=== PATIENT | female | born 1950 | race Caucasian/White ===

== ENCOUNTER 2018-06-30 06:00 | Inpatient (IN) | payer OTHER ==
[2018-06-23 12:06] LABS: Absolute Lymphocytes (CBC) 1.9 K/uL (0.7-4.9); Absolute Monocytes 0.5 K/uL (0.1-1.3); Absolute Neutrophil 3.8 K/uL (1.8-8.0); Basophils % 0.5 % (0-1.3); Eosinophils % 2.8 % (0-4.4); Hematocrit 44.7 % (36.0-45.0); Lymphocytes % 30.1 % (15.3-44.8); MPV 9.2 fL (7.6-11.3); Monocytes % 7.4 % (3.3-12.3); RBC Red Blood Cell Count 5.22 M/uL (3.86-4.86)
[2018-06-23 12:15] LABS: Protime INR 1.01
[2018-06-23 12:21] LABS: Potassium 4.6 mmol/L (3.5-5.1)
[2018-06-23 12:28] LABS: Albumin 4.3 g/dL (3.4-5.0); Bilirubin Direct 0.1 mg/dL (0-0.2); Bilirubin Total 0.4 mg/dL (0.2-1.0)
--- NOTE | 2018-06-23 13:25 | EKG ---
Test Date: 2018-06-23 Test Time: 11:31:52 Lens Engraver: JODEE MEASUREMENT RESULTS: Intervals: Rate: 62 AK: 144 QRSD: 82 QT: 398 QTc: 403 [place]: P: 13 AK: 144 QRS: 2 T: 33 INTERPRETIVE STATEMENTS: Normal sinus rhythm Normal ECG Compared to ECG 06/28/2016 11:06:36 No significant changes Electronically Signed On 06-23-18 13:24:03 TECHNICAL WRITING LEAD/MGR by Justin Tran
[~2018-06-30 06:00] MED LIST: CLINDAMYCIN INJ 600 MG in NA CHLORIDE 0.9% 50 ML IV ONE
--- OUTSIDE RECORDS SUMMARY | 2018-06-30 06:03 | XMS REPORT ---
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 Active shoulder Medications Medication Code Code Instructions Start End Status Dosage System Date Date Prevacid [facility] 74255519529 15 MG Orally Jan 19, Active 1 capsule Once a day 2017 Zoloft [facility] 59020413022 100 mg Oral Jan 19, Active 2 tab 2018 Imitrex [facility] 54061771059 100 MG Orally Active 1 tablet as Twice a day needed Clonazepam [facility] 72865842747 0.25 MG Orally Active 1 tablet on Once a day the tongue and allow to dissolve before bedtime Lyrica [facility] 71065584504 25 MG Orally Jan 19, Active 2 capsules Twice a day 2017 Meloxicam [facility] 84966287437 15 MG Orally Jan 19, Active 1 tablet Once a day 2018 Ambien [facility] 13707502999 10 MG Orally Jan 19, Active 1 tablet at Once a day 2018 bedtime as needed Pravastatin [facility] 17948456219 40 MG Orally Active 1 tablet Sodium Once a day clindamycin [facility] 0 Jan 19, Active not defined 2018 Oxycodone-Acetam [facility] 99896879731 7.5-325 MG Oral Active (Schedule inophen II Drug) TK 1 T PO TID Pantoprazole [facility] 67197894754 40 MG Orally Jan 19, Active 1 tablet Sodium Once a day 2018 Results No Known Results Summary Purpose [employer] Submission
--- OUTSIDE RECORDS SUMMARY | 2018-06-30 06:03 | XMS REPORT | Clinical Summary ---
:1950 Author Organization [facility] Address [address] [place] [address] Care Team Providers Name Role Phone Kathi Schultz MD Primary Care Provider Allergies Active Allergy Reactions Severity Noted Date Comments Bee Pollen Hives, Itching 10/26/2015 Venlafaxine Hives 10/26/2015 Penicillins Hives 10/26/2015 Sulfa (Sulfonamide Antibiotics) Hives 10/26/2015 Medications Medication Sig Dispensed Refills Start Date End Date Status pregabalin (LYRICA) Take 150 mg 0 Active 150 MG capsule by mouth 2 (two) times a day. meloxicam (MOBIC) 15 Take 15 mg by 0 Active MG tablet mouth daily. lansoprazole Take 30 mg by 0 Active (PREVACID) 30 MG mouth daily. capsule Takes in evening SUMAtriptan (IMITREX) Take 100 mg 0 Active 50 MG tablet by mouth once as needed for migraine. May repeat in 2 hours if unresolved. Do not exceed 200 mg in 24 hours. fluticasone (FLONASE) 2 sprays into 0 Active 50 mcg/actuation each nostril nasal spray daily. cetirizine (ZyrTEC) Take 10 mg by 0 Active 10 MG tablet mouth daily. diphenhydrAMINE Take 12.5 mg 0 Active (BENADRYL) 25 mg by mouth as capsule needed for itching. triamcinolone Apply 2 16.5 g 6 09/01/2016 Active (NASACORT AQ) 55 mcg sprays in nasal each nostril inhalerIndications: once a day Chronic rhinitis tiZANidine (ZANAFLEX) Take 4 mg by 0 Active 4 MG tablet mouth every 8 (eight) hours as needed for muscle spasms. pantoprazole TAKE ONE 90 tablet 1 11/16/2017 Active (PROTONIX) 40 MG EC TABLET BY tablet MOUTH DAILY oxyCODone-acetaminoph Take 1 tablet 0 Active en (PERCOCET) 7.5-325 by mouth 3 mg per tablet (three) times a day. cholecalciferol, Take 1 4 capsule 6 04/16/2018 Active vitamin D3, 50,000 capsule unit (50,000 Units capsuleIndications: total) by Vitamin D deficiency mouth once a week. pravastatin Take 1 tablet 30 tablet 5 04/21/2018 Active (PRAVACHOL) 40 MG (40 mg total) 9 tablet by mouth daily. sertraline (ZOLOFT) Take 2 60 tablet 5 05/05/2018 Active 100 MG tablet tablets (200 mg total) by mouth daily. zolpidem (AMBIEN) 10 Take 1 tablet 30 tablet 2 05/05/2018 Active mg tablet (10 mg total) 9 by mouth nightly as needed for sleep for up to 90 days. dextromethorphan-guai Take 1 tablet 0 Discontinued fenesin (MUCINEX DM by mouth as 8 REGULAR) 30-600 mg needed. tablet extended release 12 hr zolpidem (AMBIEN) 10 Take 10 mg by 0 12/20/2015 Discontinued mg tablet mouth nightly 8 as needed. oxyCODone-acetaminoph TK 1 TABLET 0 11/09/2015 Discontinued en (PERCOCET) 10-325 BY MOUTH TID 8 mg per tablet TO QID sertraline (ZOLOFT) TAKE TWO 60 tablet 5 04/01/2017 Discontinued 100 MG tablet TABLETS BY 8 MOUTH DAILY cholecalciferol, TAKE ONE 8 capsule 1 04/30/2017 Discontinued vitamin D3, 50,000 CAPSULE BY 8 unit MOUTH TWICE capsuleIndications: PER WEEK Vitamin D deficiency pantoprazole TAKE ONE 90 tablet 1 04/30/2017 Discontinued (PROTONIX) 40 MG EC TABLET BY 8 tablet MOUTH DAILY sertraline (ZOLOFT) TAKE TWO 60 tablet 2 10/06/2017 Discontinued 100 MG tablet TABLETS BY 8 MOUTH DAILY clonAZEPAM (KlonoPIN) Take 1 tablet 20 tablet 0 10/06/2017 0.5 MG tablet by mouth 8 every 6-8 hrs as needed for anxiety. nitrofurantoin, Take 1 14 capsule 0 12/18/2017 macrocrystal-monohydr capsule (100 8 ate, (MACROBID) 100 mg total) by MG mouth 2 (two) capsuleIndications: times a day Dysuria for 7 days. sertraline (ZOLOFT) TAKE TWO 60 tablet 3 12/29/2017 Discontinued 100 MG tablet TABLETS BY 8 MOUTH DAILY tolterodine LA Take 1 30 capsule 11 01/20/2018 Discontinued (DETROL LA) 4 MG 24 capsule (4 mg 8 hr capsule total) by mouth daily. zolpidem (AMBIEN) 10 Take 1 tablet 30 tablet 2 01/21/2018 mg tablet (10 mg total) 8 by mouth nightly as needed for sleep for up to 30 days. clonAZEPAM (KlonoPIN) Take 1 tablet 30 tablet 0 04/16/2018 0.5 MG tablet by mouth 8 every 6-8 hrs as needed for anxiety. azithromycin Take 2 6 tablet 0 06/18/2018 (ZITHROMAX Z-ELIZA) 250 tablets the 9 MG tabletIndications: first day, Cough then 1 tablet daily for 4 days. 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 Encounters Date Type Specialty Care Team Description 06/18/2018 Office Visit Family Medicine Kathi Schultz Preoperative clearance (Primary Dx); MD Warren Primary osteoarthritis of right shoulder; Cough 06/03/2018 Telephone Family Medicine Kathi Schultz MD 05/21/2018 Telephone Internal Medicine Kathi Schultz MD 05/04/2018 Telephone Family Medicine Kathi Schultz MD 05/04/2018 Refill Family Medicine Kathi Schultz MD 04/21/2018 Telephone Family Medicine Kathi Schultz MD 04/16/2018 Telephone Internal Medicine Kathi Schultz MD 04/15/2018 Refill Family Kathi Aceves Vitamin D deficiency MD Warren 04/12/2018 Lab Lab Kathi Schultz Pure hypercholesterolemia; MD Warren Urinary incontinence without sensory awareness; Osteopenia of lumbar spine; Vitamin D deficiency; Chronic cough; Acute chest wall pain; Recurrent major depressive disorder, in partial remission (HCC) 04/12/2018 Office Visit Family Medicine Kathi Schultz Annual visit for general adult medical examination with abnormal findings (Primary Dx); MD Warren Immunization due; Breast cancer screening; Colon cancer screening; Osteopenia of lumbar spine; Chronic cough; Pure hypercholesterolemia; Urinary incontinence without sensory awareness; Recurrent major depressive disorder, in partial remission (HCC); Primary osteoarthritis of right shoulder; Vitamin D deficiency; Acute chest wall pain 04/08/2018 Telephone Family Medicine Kathi Schultz MD 03/10/2018 Telephone Urology Marlene Moreland MD 03/08/2018 Telephone Urology Sarah Gamez MA 03/01/2018 Procedure visit Urology Marlene Moreland Urinary urgency MD Yun (Primary Dx) 02/26/2018 Telephone Urology Cele Miller LVN 01/21/2018 Telephone Neurosurgery Jyotsna Peguero MA 01/20/2018 Office Visit Urology Marlene Moreland Urinary frequency (Primary Dx); MD Yun Urge incontinence; Nocturia 12/29/2017 Refill Family Medicine Kathi Schultz MD 12/25/2017 Lab Lab Kathi Schultz Urinary tract infection MD Warren without hematuria, site unspecified 12/22/2017 Telephone Family Medicine Kathi Schultz Urinary tract infection MD Warren without hematuria, site unspecified (Primary Dx) 12/18/2017 Office Visit Family Kathi Aceves Dysuria (Primary Dx); MD Warren Nocturnal enuresis; Urge incontinence 12/18/2017 Nurse Triage Access Abby Kapadia RN 11/17/2017 Refill Cardiology Short, [facility] Refill 11/16/2017 Refill Family Medicine Kathi Schultz MD 10/06/2017 Telephone Family Medicine Kathi Schultz MD 10/05/2017 Refill Family Medicine Kathi Schultz MD 09/25/2017 Office Visit Family Medicine Kathi Schultz Posterior chest pain (Primary Dx); MD Warren Cough present for greater than 3 weeks after 06/29/2017 Immunizations Name Dates Previously Given Next Due FLUZONE HIGH-DOSE PF 04/12/2018, 09/25/2016 Pneumococcal Conjugate 13-Valent 09/25/2016 Pneumococcal Polysaccharide 04/12/2018 Family History Medical History Relation Name Comments No Known Problems Brother No Known Problems Father No Known Problems Maternal Grandfather No Known Problems Maternal Grandmother No Known Problems Mother Asthma Other Emphysema Other Other Other breathing problems No Known Problems Paternal Grandmother No Known Problems Sister Relation Name Status Comments Brother Father Maternal Grandfather Maternal Grandmother Mother Alive Other Paternal Grandmother Sister Social History Tobacco Use Types Packs/Day Years Used Date Never Smoker Smokeless Tobacco: Never Used Tobacco Cessation: Counseling Given: No Alcohol Use Drinks/Week oz/Week Comments No Sex Assigned at Date Recorded Not on file Job Start Date Occupation Industry Not on file Not on file Not on file Travel History Travel Start Travel End No recent travel history available. Last Filed Vital Signs Vital Sign Reading Time Taken Blood Pressure 118/75 06/18/2018 3:11 PM TRAUMA NURSE Pulse 73 06/18/2018 3:11 PM TRAUMA NURSE Temperature 37.2 C (99 F) 06/18/2018 3:11 PM TRAUMA NURSE Respiratory Rate - - Oxygen Saturation 97% 06/18/2018 3:11 PM TRAUMA NURSE Inhaled Oxygen Concentration - - Weight 65.8 kg (145 lb) 06/18/2018 3:11 PM TRAUMA NURSE Height 157.5 cm (5' 2") 06/18/2018 3:11 PM TRAUMA NURSE Body Mass Index 26.52 06/18/2018 3:11 PM TRAUMA NURSE Plan of Treatment Health Maintenance Due Date Last Done Comments BREAST CANCER SCREENING 10/21/1999 COLON CANCER SCREENING 10/21/1999 SHINGLES VACCINES (1 of 2) 10/21/1999 PNEUMOCOCCAL-13 Completed 09/25/2016 INFLUENZA VACCINE Completed 04/12/2018, 09/25/2016 PNEUMOCOCCAL POLYSACCHARIDE VACCINE AGE 65 Completed 04/12/2018 AND OVER Implants Implanted Type Area Support Specialist Device Shelf Model / Serial / Identifier Expiration Lot Date Shell Actblr Mul-Hl Sz Jj 54mm Continuum - [id number] Hip Joint Right [employer] 06/14/2025 [id number] / Implanted: Qty: 1 on 11/05/2015 Implants : Hip / [id number] Shell Actblr Mul-Hl Sz Jj 54mm Continuum - [id number] Hip Joint Right [employer] 06/14/2025 [id number] / Implanted: Qty: 1 on 11/05/2015 Implants : Hip / [id number] Putty Dbm Dbx 10cc - [id number] - [id number] Human Right MUSCULOSKELETAL 04/13/2017 [id number] / Implanted: Qty: 1 on 11/05/2015 Tissue : Hip TRANSPLANT [id number] / Implants [employer] Head Fml 05/28 Tprd Mtl 36x+8.5mm Articul/Yuri Ultamet - [id number] Orthopedic Right DEPUY ORTHO 08/07/2019 [id number] / Implanted: Qty: 1 on 11/05/2015 Trauma : Hip / Implants [id number] Cancellous Chips, 30cc Right 07/04/2018 / Implanted: Qty: 1 on 11/05/2015 : Hip [id number] / Neutral Liner Right 05/14/2020 / Implanted: Qty: 1 on 11/05/2015 : Hip / [id number] Bone Screw Right 08/12/2025 / Implanted: Qty: 1 on 11/05/2015 : Hip / [id number] Bone Screw Right 01/12/2025 / Implanted: Qty: 1 on 11/05/2015 : Hip / [id number] Procedures Procedure Name Priority Date/Time Associated Diagnosis Comments XR CHEST 2 VW Routine 06/18/2018 Preoperative clearance Results for 3:58 PM TRAUMA NURSE Primary osteoarthritis of this procedure right shoulder are in the Cough results section. XR RIBS 3 VW Routine 04/13/2018 Acute chest wall pain Results for BILATERAL 1:06 PM CDT this procedure are in the results section. XR CHEST 2 VW Routine 04/13/2018 Chronic cough Results for 1:06 PM CDT this procedure are in the results section. THYROID STIMULATING Routine 04/12/2018 Pure hypercholesterolemia Results for HORMONE 9:57 AM CDT Recurrent major depressive this procedure disorder, in partial are in the remission (HCC) results section. CBC WITH PLATELET Routine 04/12/2018 Chronic cough Results for AND DIFFERENTIAL 9:57 AM CDT Acute chest wall pain this procedure are in the results section. VITAMIN D 25 HYDROXY Routine 04/12/2018 Osteopenia of lumbar spine Results for LEVEL 9:57 AM CDT Vitamin D deficiency this procedure are in the results section. URINALYSIS, Routine 04/12/2018 Urinary incontinence Results for COMPLETE, WITH 9:57 AM CDT without sensory awareness this procedure REFLEX TO CULTURE are in the results section. COMPREHENSIVE Routine 04/12/2018 Pure hypercholesterolemia Results for METABOLIC PANEL 9:57 AM CDT this procedure are in the results section. LIPID PANEL Routine 04/12/2018 Pure hypercholesterolemia Results for 9:57 AM CDT this procedure are in the results section. URINE CULTURE Routine 04/12/2018 Results for 9:57 AM CDT this procedure are in the results section. OCCULT BLOOD, STOOL Routine 04/12/2018 Colon cancer screening Results for 9:36 AM CDT this procedure are in the results section. POC URINALYSIS Routine 03/01/2018 Urinary urgency Results for DIPSTICK 3:00 PM CDT this procedure are in the results section. VPS INTERMED Routine 03/01/2018 Urinary urgency (FR,EMG,PVES-PABD: 2:22 PM CDT PDET) CYSTOMETROGRAM Routine 03/01/2018 Urinary urgency COMPLEX (CMG-PVES) 2:22 PM CDT FL URETHROGRAM URO Routine 03/01/2018 Urinary urgency 2:21 PM CDT UROFLOWMETRY COMPLEX Routine 03/01/2018 Urinary urgency (F-P-F) 2:21 PM CDT VPS INTRA ABD Routine 03/01/2018 Urinary urgency COMPLEX (LPP) 2:21 PM CDT [id number] Routine 01/20/2018 Nocturia Results for 10:07 AM CDT Urge incontinence this procedure are in the results section. POC URINALYSIS Routine 01/20/2018 Nocturia Results for DIPSTICK 9:59 AM CDT Urge incontinence this procedure are in the results section. URINALYSIS, Routine 12/25/2017 Urinary tract infection Results for AUTOMATED WITH 12:34 PM CDT without hematuria, site this procedure MICROSCOPY unspecified are in the results section. URINE CULTURE Routine 12/25/2017 Urinary tract infection Results for 12:34 PM CDT without hematuria, site this procedure unspecified are in the results section. POC URINALYSIS Routine 12/18/2017 Dysuria Results for DIPSTICK 11:58 AM CDT this procedure are in the results section. URINALYSIS, Routine 12/18/2017 Dysuria Results for AUTOMATED WITH 11:57 AM CDT this procedure MICROSCOPY are in the results section. URINE CULTURE Routine 12/18/2017 Dysuria Results for 11:57 AM CDT this procedure are in the results section. XR CHEST 2 VW Routine 09/25/2017 Posterior chest pain Results for 10:51 AM CDT Cough present for greater this procedure than 3 weeks are in the results section. after 06/29/2017 Results XR Chest 2 Vw (06/18/2018 3:58 PM TRAUMA NURSE)Only the most recent of3 resultswithin the time period is included. Narrative Performed At EXAMINATION:XR CHEST 2 VW [facility] CLINICAL HISTORY:Z01.818 Encounter for other preprocedural examination, M19.011 Primary osteoarthritisright shoulder, coughpre-op clearance COMPARISON:04/13/2018 IMPRESSION: Lungs are clear without infiltrate, pleural effusion or pneumothorax. Cardiomediastinal silhouette is unremarkable. Osseous degenerative changes and mild osseous demineralization. Cranial extent of posterior spinal fusion partly visualized. Kyphoplasty changes lower thoracic/upper lumbar vertebra. [facility]-[id number] Procedure Note Hm Interface, Radiology Results Incoming - 06/18/2018 4:05 PM TRAUMA NURSE EXAMINATION: XR CHEST 2 VW CLINICAL HISTORY: Z01.818 Encounter for other preprocedural examination, M19.011 Primary osteoarthritis right shoulder, cough pre-op clearance COMPARISON: 04/13/2018 IMPRESSION: Lungs are clear without infiltrate, pleural effusion or pneumothorax. Cardiomediastinal silhouette is unremarkable. Osseous degenerative changes and mild osseous demineralization. Cranial extent of posterior spinal fusion partly visualized. Kyphoplasty changes lower thoracic /upper lumbar vertebra. [facility]-[id number] Performing Organization Address City/State/Zipcode Phone Number [facility] [address] [place] [address] XR Ribs 3 Vw Bilateral (04/13/2018 1:06 PM CDT) Narrative Performed At EXAMINATION:XR RIBS 3 VW BILATERAL [facility] CLINICAL HISTORY:R07.89 Other chest pain, R and L sided chest wall painR side due to leaning over bath tubawoke with L sided pain today (cause) COMPARISON:None. IMPRESSION: Nondisplaced right anterior sixth and eighth rib fracture suspected in the costochondral junction. Correlate for point tenderness. [id number] Procedure Note Hm Interface, Radiology Results Incoming - 04/13/2018 5:12 PM CDT EXAMINATION: XR RIBS 3 VW BILATERAL CLINICAL HISTORY: R07.89 Other chest pain, R and L sided chest wall pain R side due to leaning over bath tub awoke with L sided pain today ( cause) COMPARISON: None. IMPRESSION: Nondisplaced right anterior sixth and eighth rib fracture suspected in the costochondral junction. Correlate for point tenderness. [id number] Performing Organization Address City/[facility]/Zipcode Phone Number [facility] [address] [place] [address] URINALYSIS, COMPLETE, WITH REFLEX TO CULTURE (04/12/2018 9:57 AM CDT) Color, UA DARK YELLOW YELLOW [facility] [place] Appearance CLEAR CLEAR [facility] Specific gravity, urine 1.030 1.001 - 1.035 [facility] [place] pH, urine 7.5 5.0 - 8.0 [facility] Glucose, urine NEGATIVE NEGATIVE [facility] Bilirubin, UA NEGATIVE NEGATIVE [facility] Ketones, UA TRACE (A) NEGATIVE [facility] Occult blood, urine NEGATIVE NEGATIVE [facility] Protein, UA TRACE (A) NEGATIVE [facility] Nitrite, UA NEGATIVE NEGATIVE [facility] Leukocyte esterase, UA TRACE (A) NEGATIVE [facility] [place] WBC, UA NONE SEEN < OR=5 /HPF [facility] [place] RBC, UA 0-2 < OR=2 /HPF [facility] Squamous epithelial 0-5 < OR=5 /HPF [facility] cells, UA [facility] Bacteria, UA NONE SEEN NONE SEEN /HPF [facility] Hyaline casts, UA NONE SEEN NONE SEEN /LPF [facility] Reflex CULTURE INDICATED - [employer] RESULTS TO FOLLOW [facility] Specimen Blood Resulting Agency Comment Performing Organization Information: Site ID: [id number] Name: [facility] Address: [address] [place] [address] Director: Pina Peralta Performing Organization Address City/[facility]/Zipcode Phone Number [facility] [address] [address] Vitamin D 25 hydroxy level (04/12/2018 9:57 AM CDT) Vitamin D, 25-hydroxy 28 (L) 30 - 100 ng/mL [employer] [place] Comment: [facility] Vitamin D Status 25-OH Vitamin D: Deficiency:<20 ng/mL Insufficiency: 20 - 29 ng/mL Optimal: > or=30 ng/mL For 25-OH Vitamin D testing on patients on D2-supplementation and patients for whom quantitation of D2 and D3 fractions is required, the QuestAssureD(TM) 25-OH VIT D, (D2,D3), LC/MS/MS is recommended: order code 61168 (patients >2yrs). For more information on this test, go to: http://education.[employer]/faq/KTG282 (This link is being provided for informational/educational purposes only.) Specimen Blood Resulting Agency Comment Performing Organization Information: Site ID: [id number] Name: [facility] Address: [address] [place] [phone] Director: Pina Peralta Performing Organization Address City/State/Zipcode [place] [address] CBC with platelet and differential (04/12/2018 9:57 AM CDT) WBC 6.6 3.8 - 10.8 Thousand/uL [employer] [facility] [place] RBC 5.05 3.80 - 5.10 Million/uL [facility] HGB 14.3 11.7 - 15.5 g/dL [facility] HCT 43.8 35.0 - 45.0 % [employer] [facility] [place] MCV 86.7 80.0 - 100.0 fL [employer] [facility] MCH 28.3 27.0 - 33.0 pg [employer] [facility] MCHC 32.6 32.0 - 36.0 g/dL [employer] [facility] RDW 14.5 11.0 - 15.0 % [employer] [facility] Platelet count 232 140 - 400 Thousand/uL [employer] [facility] MPV 10.9 7.5 - 12.5 fL [employer] [facility] [place] Neutrophils, absolute 3,947 1,500 - 7,800 cells/uL [employer] [facility] Lymphocytes, absolute 1,980 850 - 3,900 cells/uL [employer] [facility] [place] Monocytes, absolute 475 200 - 950 cells/uL [facility] Eosinophils, absolute 139 15 - 500 cells/uL [facility] Basophils, absolute 59 0 - 200 cells/uL [facility] Neutrophils 59.8 % [facility] Lymphocytes 30.0 % [facility] Monocytes 7.2 % [facility] Eosinophils 2.1 % [facility] Basophils + RC 0.9 % [facility] Specimen Blood Resulting Agency Comment Performing Organization Information: Site ID: [id number] Name: [facility] Address: [address] [place] [phone] Director: Pina Peralta Performing Organization Address City/State/Zipcode Phone Number [facility] [address] [place] [address] Urine culture (04/12/2018 9:57 AM CDT)Only the most recent of3 resultswithin the time period is included. Urine culture SEE NOTE (A) [employer] [facility] [place] Comment: CULTURE, URINE, ROUTINE MICRO NUMBER:[id number] TEST STATUS: FINAL SPECIMEN SOURCE: URINE SPECIMEN QUALITY:ADEQUATE RESULT:10,000-50,000 CFU/mL of Escherichia coli E.coli INT SKINNY AMOX/CLAVULANATE S <=2 AMPICILLIN S 4 AMP/SULBACTAMS 4 CEFAZOLINNR<=4 2 CEFEPIME S <=1 CEFTRIAXONES <=1 CIPROFLOXACINR >=4 GENTAMICIN S <=1 IMIPENEM S <=0.25 LEVOFLOXACIN R >=8 NITROFURANTOIN S <=16 PIP/TAZOBACTAM S <=4 TOBRAMYCIN S <=1 TRIMETHOPRIM/SULFA R >=320 S=SusceptibleI=IntermediateR=Resistant*=Not Tested NR=Not ReportedNN=See Therapy Comments THERAPY COMMENTS Note 1: For infections other than uncomplicated UTI caused by E. coli, K. pneumoniae or P. mirabilis: Cefazolin is resistant if SKINNY > or=8 mcg/mL. (Distinguishing susceptible versus intermediate for isolates with SKINNY < or=4 mcg/mL requires additional testing.) Note 2: For uncomplicated UTI caused by E. coli, K. pneumoniae or P. mirabilis: Cefazolin is susceptible if SKINNY <32 mcg/mL and predicts susceptible to the oral agents cefaclor, cefdinir, cefpodoxime, cefprozil, cefuroxime, cephalexin and loracarbef. Resulting Agency Comment Performing Organization Information: Site ID: [id number] Name: [facility] Address: [address] [place] [phone] Director: Pina Peralta Performing Organization Address City/[facility] Phone Number [facility] [address] [place] [phone] Thyroid stimulating hormone (04/12/2018 9:57 AM CDT) TSH 0.83 0.40 - 4.50 mIU/L [facility] Specimen Blood Resulting Agency Comment Performing Organization Information: Site ID: [id number] Name: [facility] Address: [address] [place] [phone] Director: Pina Peralta Performing Organization Address [facility] Phone Number [facility] [address] [address] Lipid panel (04/12/2018 9:57 AM CDT) Cholesterol, total 301 (H) <200 mg/dL [facility] HDL cholesterol 46 (L) >50 mg/dL [facility] Triglycerides 372 (H) <150 mg/dL [facility] LDL cholesterol 192 (H) mg/dL (calc) [facility] calculated Comment: [facility] LDL-C levels > lw=169 mg/dL may indicate familial hypercholesterolemia (FH). Clinical assessment and measurement of blood lipid levels should be considered for all first degree relatives of patients with an FH diagnosis. For questions about testing for familial hypercholesterolemia, please call [employer] Client Services at [phone].INFO. Arline T, et al. J National Lipid Association Recommendations for Patient-Centered Management of Dyslipidemia: Part 1 Journal of Clinical Lipidology 2015;9(2), 129-169. Reference range: <100 Desirable range <100 mg/dL for primary prevention; <70 mg/dL for patients with CHD or diabetic patients with > or=2 CHD risk factors. LDL-C is now calculated using the Olegario calculation, which is a validated novel method providing better accuracy than the Friedewald equation in the estimation of LDL-C. Lonny HARRIS et al. CHASTITY. 2013;310(19): 8975-7552 (http://education.[employer]/faq/VOB176) Cholesterol/HDL ratio 6.5 (H) <5.0 (calc) [employer] [facility] [place] Non-HDL cholesterol 255 (H) <130 mg/dL [facility] [facility] [employer] Comment: (calc) [facility] Non-HDL level > by=057 is very high and may indicate genetic familial hypercholesterolemia (FH). Clinical assessment and measurement of blood lipid levels should be considered for all first-degree relatives of patients with an FH diagnosis. For patients with diabetes plus 1 major ASCVD risk factor, treating to a non-HDL-C goal of <100 mg/dL (LDL-C of <70 mg/dL) is considered a therapeutic option. Specimen Blood Resulting Agency Comment Performing Organization Information: Site ID: [id number] Name: [facility] Address: [address] [place] [phone] Director: Pina Peralta Performing Organization Address City/State/Zipcode Phone Number [facility] [employer] [address] [phone] Comprehensive metabolic panel (04/12/2018 9:57 AM CDT) Glucose 97 65 - 99 mg/dL [employer] Comment: [facility] Fasting reference interval BUN, whole blood 18 7 - 25 mg/dL [employer] [facility] Creatinine 0.97 0.50 - 0.99 [employer] Comment: mg/dL [facility] For patients >49 years of age, the reference limit for Creatinine is approximately 13% higher for people identified as -Beninese. EGFR Non-Afr. Beninese 60 > OR=60 [employer] mL/min/1.73m2 [place] EGFR 70 > OR=60 [facility] mL/min/1.73m2 [place] BUN/creatinine ratio NOT APPLICABLE 6 - 22 (calc) [employer] [facility] Sodium 141 135 - 146 mmol/L [employer] [facility] Potassium 4.8 3.5 - 5.3 mmol/L [employer] [facility] Chloride 102 98 - 110 mmol/L [employer] [facility] CO2 31 20 - 32 mmol/L [employer] [facility] Calcium 9.8 8.6 - 10.4 mg/dL [employer] [facility] Protein 7.2 6.1 - 8.1 g/dL [employer] [facility] Albumin, S 4.5 3.6 - 5.1 g/dL [employer] [facility] Globulin, total 2.7 1.9 - 3.7 g/dL [employer] (calc) [facility] Albumin/globulin ratio 1.7 1.0 - 2.5 (calc) [facility] Total bilirubin 0.4 0.2 - 1.2 mg/dL [facility] Alkaline phosphatase 90 33 - 130 U/L [employer] [facility] AST 13 10 - 35 U/L [facility] ALT 11 6 - 29 U/L [employer] [facility] Specimen Blood Resulting Agency Comment Performing Organization Information: Site ID: [facility] Name: [employer] [facility] Lab Address: [address] [place] [phone] Director: Pina Peralta Performing Organization Address City/[facility] Phone Number [facility] [employer] [address] [phone] Occult blood, stool (04/12/2018 9:36 AM CDT) Fecal globin result SEE NOTE [facility] Comment: FECAL GLOBIN BY IMMUNOCHEMISTRY MICRO NUMBER:[id number] TEST STATUS: FINAL SPECIMEN SOURCE: INSURE (TM) FOBT TEST CARD SPECIMEN QUALITY:ADEQUATE RESULT:Not Detected Specimen Stool Resulting Agency Comment Performing Organization Information: Site ID: [facility] Name: [employer] [facility] Lab Address: [address] [place] [phone] Director: Pina Peralta Performing Organization Address [facility] Phone Number [employer] [place] [phone] POC urinalysis dipstick (03/01/2018 3:00 PM CDT)Only the most recent of3 resultswithin the time period is included. Color urine, POC Yellow Clarity urine, POC Clear Glucose urine, POC Negative Negative Bilirubin urine, POC Negative Negative Ketones urine, POC Negative Negative Specific gravity urine, POC 1.020 1.005 - 1.030 Blood urine, POC Negative Negative pH urine, POC 6.0 5.0, 5.5, 6.0, 6.5, 7.0, 7.5, 8.0, 8.5 Protein urine, POC Negative Negative Urobilinogen urine, POC <2.0 <2.0 Nitrite urine, POC Negative Negative Leukocyte esterase urine, POC Trace (A) Negative Specimen Urine VPS intermed (FR, EMG, Pves-Pabd: pdet) (03/01/2018 2:22 PM CDT)FL URETHROGRAM URO (03/01/2018 2:21 PM CDT)Uroflowmetery complex (F-P-F) (03/01/2018 2:21 PM CDT)VPS intra abd complex (LPP) (03/01/2018 2:21 PM CDT)POC BLADDER SCAN/PVR ( 01/20/2018 10:07 AM CDT) Volume 50 mlComment: pvr Specimen Urine Urinalysis, automated with microscopy (12/25/2017 12:34 PM CDT)Only the most recent of2 resultswithin the time period is included. Color, UA YELLOW YELLOW [facility] Appearance CLEAR CLEAR [facility] [place] Specific gravity, urine 1.026 1.001 - 1.035 [facility] [place] pH, urine 6.5 5.0 - 8.0 [facility] [place] Glucose, urine NEGATIVE NEGATIVE [facility] [place] Bilirubin, UA NEGATIVE NEGATIVE [facility] [place] Ketones, UA NEGATIVE NEGATIVE [facility] Occult blood, urine NEGATIVE NEGATIVE [facility] [place] Protein, UA NEGATIVE NEGATIVE [facility] Nitrite, UA NEGATIVE NEGATIVE [facility] Leukocyte esterase, UA NEGATIVE NEGATIVE [facility] WBC, UA NONE SEEN < OR=5 /HPF [facility] [place] RBC, UA 0-2 < OR=2 /HPF [facility] [place] Squamous epithelial cells, UA NONE SEEN < OR=5 /HPF [facility] [place] Bacteria, UA NONE SEEN NONE SEEN /HPF [facility] [place] Hyaline casts, UA NONE SEEN NONE SEEN /LPF [facility] Specimen Urine Resulting Agency Comment Performing Organization Information: Site ID: [id number] Name: [facility] Lab Address: [address] [place] [phone] Director: Pina Peralta Performing Organization Address City/State/Zipcode Phone Number [employer] [place] [address] [place] [address] after 06/29/2017 Insurance Payer Benefit Plan / Group Subscriber ID Type Phone Address MEDICARE MEDICARE PART A AND B xxxxxxxxxxx Medicare [place] [employer] xxxxxxxx Commercial Advance Directives Patient has advance care planning documents on file. For more information, please contact:Derick Adan[address] [place] [address]
--- OUTSIDE RECORDS SUMMARY | 2018-06-30 06:03 | XMS REPORT ---
[...] Start End Status Dosage System Date Date clindamycin [facility] 0 Jan 19, Active not defined 2017 Ambien [facility] [id number] 10 MG Orally Jan 19, Active 1 tablet at Once a day 2018 bedtime as needed Meloxicam [facility] [id number] 15 MG Orally Jan 19, Active 1 tablet Once a day 2017 Pantoprazole [facility] [id number] 40 MG Orally Jan 19, Active 1 tablet Sodium Once a day 2017 Oxycodone-Acetam [facility] [id number] 7.5-325 MG Oral Active (Schedule inophen II Drug) TK 1 T PO TID Zoloft [facility] [id number] 100 mg Oral Jan 19, Active 2 tab 2018 Prevacid [facility] [id number] 15 MG Orally Jan 19, Active 1 capsule Once a day 2017 Lyrica [facility] [id number] 25 MG Orally Jan 19, Active 2 capsules Twice a day 2018 Results No Known Results Summary Purpose [employer] Submission
[2018-06-30] MEDS ORDERED: Ringers Lactate 1,000 ML IV ONE ×2 (06:16→07:31)
[2018-06-30] MEDS ORDERED: FENTANYL CITR 250 MCG/5 ML ONE (07:01)
[2018-06-30] MEDS ORDERED: MIDAZOLAM HCL 2 MG/2 ML INJ ONE (07:01)
[2018-06-30] MEDS ORDERED: PROPOFOL 200 MG/20 ML VIAL IV ONE (07:01)
[2018-06-30] MEDS ORDERED: ROCURONIUM 50 MG/5 ML VIAL IV ONE (07:01)
[2018-06-30] MEDS ORDERED: LIDOCAINE 2% MPF 5 ML VIAL ONE (07:01)
[2018-06-30] MEDS ORDERED: DEXAMETHASONE 4 MG/ML VIAL ONE (07:11)
[2018-06-30] MEDS ORDERED: ROPLVACAINE HCL 40 ML ONE (07:11)
[2018-06-30] MEDS ORDERED: EPHEDRINE SULF 50 MG/ML VIAL ONE (08:01)
[2018-06-30] MEDS ORDERED: ALBUMIN HUM 5% 250 ML IV ONE (08:10)
[2018-06-30] MEDS ORDERED: DEXAMETHASONE 10 MG/ML VIAL ONE (09:05)
[2018-06-30] MEDS ORDERED: Phenylephrine HCl 10 MG/ML 1 ML VIAL ONE ×2 (09:15→09:44)
[2018-06-30] MEDS ORDERED: BUPIVACA 0.25%/EPI 0.0005% MDV 50 ML VIAL ONE (09:42)
[2018-06-30] MEDS ORDERED: NA CHLORIDE 0.9% 100 ML IV ONE (09:42)
[2018-06-30] MEDS ORDERED: KETOROLAC 30 MG/ML INJ ONE (10:51)
[2018-06-30] MEDS ORDERED: Oxycodone HCl/Acetaminophen 1 TAB TAB PO PRN (11:41)
[2018-06-30] MEDS ORDERED: SUMATRIPTAN SUCCI 50 MG TAB PO PRN (11:41)
--- NOTE | 2018-06-30 11:41 | P.BOP ---
Preoperative diagnosis: right shoulder osteoarthritis Postoperative diagnosis: same Primary procedure: right total shoulder arthroplasty Secondary procedure: none Therapy Manager: NONE,NONE Estimated blood loss: 100 cc Specimen: right shoulder bone remnants Findings: see dictation Anesthesia: General Complications: None Implants: 12 mm Mini stem, 42 x 18 Head, small glenoid Fluids & blood products: per anesthesia record Transferred to: Recovery Room Condition: Good
[2018-06-30] MEDS ORDERED: DOCUSATE NA 100 MG CAP PO PRN (11:42)
[2018-06-30] MEDS ORDERED: ONDANSETRON 4 MG/2 ML VIAL IV PRN (11:42)
[2018-06-30] MEDS ORDERED: MORPHINE 4 MG/ML SYR IV PRN (11:42)
--- NOTE | 2018-06-30 12:14 | RAD REPORT ---
EXAM DESCRIPTION: RAD - Shoulder 1 View - 06/30/2018 12:06 pm CLINICAL HISTORY: postop COMPARISON: Shoulder Arthorgraphy dated 04/27/2018 FINDINGS: Right total shoulder arthroplasty procedure has been performed. Hardware is in expected al ignment and positioning. Skin fritz are noted.
[2018-06-30] MEDS ORDERED: ZOLPIDEM TARTRATE 10 MG TABLET PO PRN ×2 (12:20→15:47)
[2018-06-30 12:23] LABS: Hematocrit 36.9 % (36.0-45.0)
[2018-06-30] MEDS ORDERED: LIDOCAINE 2% PO PRN (16:17)
[2018-06-30] MEDS ORDERED: VISCOUS PO PRN (16:17)
[2018-06-30] MEDS ORDERED: CLONAZEPAM 0.5 MG PO PRN (16:18)
[2018-06-30] MEDS ORDERED: OXYCODONE PO PRN (16:19)
[2018-06-30] MEDS ORDERED: APAP PO PRN (16:19)
[2018-06-30] MEDS: TIZANIDINE PO SCH (18:13)
[2018-06-30] MEDS: CLINDAMYCIN INJ 600 MG in NA CHLORIDE 0.9% 50 ML IV SCH (18:19)
[2018-06-30] MEDS ORDERED: ATORVASTATIN 10 MG TAB PO SCH (21:00)
[2018-06-30] MEDS ORDERED: DOXEPIN 6 MG PO SCH (21:00)
[2018-06-30] MEDS ORDERED: PRAVASTATIN SODIUM 5 MG PO SCH (21:00)
[2018-06-30] MEDS ORDERED: PREGABALIN 150 MG CAP PO SCH (21:00)
[2018-06-30] MEDS ORDERED: ZOLPIDEM TARTRATE 10 MG TABLET PO SCH (21:00)
[2018-06-30] MEDS: PREGABALIN 150 MG CAP PO SCH (21:45)
[2018-07-01] MEDS: CLINDAMYCIN INJ 600 MG in NA CHLORIDE 0.9% 50 ML IV SCH ×2 (00:16→09:17)
[2018-07-01] MEDS: HYDROCODONE/APAP 7.5/325 MG TAB PO PRN ×3 (00:43→10:05)
--- NOTE | 2018-07-01 03:10 | OP ---
Date of Procedure: 06/30/2018 Surgeon: Alexey Sheldon MD Preoperative Diagnosis: Right shoulder osteoarthritis. Postoperative Diagnosis: Right shoulder osteoarthritis. Procedure Performed: Right total shoulder arthroplasty. Anesthesia: General endotracheal. Fluids: Per Anesthesia record. Estimated Blood Loss: 100 cc. Complications: None. Implants: A [employer] 12 mm mini stem, a 42 x 18 mm head and a small glenoid with regenerated post. Indication For Procedure: Sheri is a 67-year-old female who presented to my clinic with longstanding right shoulder pain. X-rays demonstrated severe osteoarthritis in the right shoulder. The patient failed conservative treatment measures including corticosteroid injection. I discussed with the kylie ent at length risks and benefits associated with operative and nonoperative treatment. She expressed understanding and elected to proceed with operative treatment. Description Of Procedure: After informed consent was obtained, the patient was identified in the pre operative holding area. The right upper extremity was marked. The patient was then taken back to e PACU, where she underwent an interscalene block to her right thigh performed by Anesthesia. She wa s then taken back to the operating room, transferred to the operating table in a supine fashion, and placed under general endotracheal anesthesia. The right upper extremity was then prepped and draped in usual sterile fashion. A time-out was initiated, the correct patient and procedure were confirmed and identified. The patient did receive preoperative prophylactic antibiotics. Approximately a 12 cm incision was made over the deltopectoral interval from just proximal tip of the coracoid to the in sertion of the deltoid over the proximal humerus. Dissection was then taken down to the deltopectora l interval with Metzenbaum. Cephalic vein was identified and protected and retracted medially. A se lf-retaining retractor was then placed within the deltopectoral interval and the deltoid was retracte d laterally and peg was retracted medially. The superior 20% of the peg insertion with good release at the insertion point to aid with exposure. The shoulder was then externally rotated and just media l to the lesser tuberosity, the subscapularis and anterior capsule were opened. It was opened superi oscar along the rotator interval and then inferiorly. Hemostasis was achieved on the inferior border using Bovie electrocautery as well as silk ties. The anterior capsule was then released off the ante rior glenoid and of the undersurface of the humerus. The shoulder was then externally rotated and ex tended to dislocate the proximal humerus. Once that was in place, a Hohmann retractor was placed pos teriorly to aid with the location. An entry reamer was placed just posterior to the biceps tendon an d just medial to the insertion point of the rotator cuff which was found to be intact. The canal was then reamed with a 6 mm reamer in 1 mm increments, increased to size 12 mm reamer. There was good c hatter with the 12 mm reamer. A jig was placed to make the humeral head cut. Adequate retroversion was selected using the jig and humeral head cut was made. Osteophytes of the superomedial bone of th e proximal humerus were removed using a rongeur as well as an osteotome. After the humeral shaft was reamed, it was broached beginning with a size 8 mm broach in 1 mm increments until a 12 mm broach wa s selected. The size 42 x 18 mm head was trialed and there was good overall fit. A protector was th en placed on the end of the broach handle and attention was taken to the glenoid. A Batman and Riki retractor was then used for glenoid exposure. The labrum was removed using Bovie electrocautery, pr otecting the axillary nerve at all times. Quadrants were then marked with the glenoid using a Bovie electrocautery. The central pin was then placed within the glenoid in a bicortical fashion. A reame r was then used to debride off the superficial cartilage layer of the glenoid. Central post was then drilled over the guidepin by using the jig for drilling the 3 superior, anteroinferior, and posteroi nferior holes for the pegs. The wound was then irrigated thoroughly with normal saline. The cement was prepared and placed within the 3 peg sites and final small glenoid with regenerated post was plac ed within undersurface of the glenoid with good overall fit. After the cement hardened and the gleno id was found to be stable attention was then taken to placing the humeral component. Again, with the glenoid in place, a 42 x 18 mm head was placed and there were good overall stability and good range of motion. Trial implants were removed. A size 12 mm final mini stem was placed with good overall f it and adequate retroversion and final 42 x 18 mm head was placed and the shoulder was reduced, range d. There were good overall stability and good range of motion. The subscapularis was then repaired using Ethibond sutures. Fascia was then approximated using a #1 Vicryl. Subcutaneous tissue was christopher roximated using 2-0 Vicryl. Skin was approximated using fritz. Sterile dressings were applied. T he patient was placed in a shoulder immobilizer, awakened, and transferred to PACU in stable conditio n. Postoperative Plan: She will be transferred to the floor for pain control and physical therapy to [place] with the patient's mobilization. We will plan on discharge tomorrow. We will continue to follow. NIKCO/ISMAEL Voice ID: [id number] Report ID: [id number]
[2018-07-01 04:29] LABS: Absolute Lymphocytes (CBC) 1.8 K/uL (0.7-4.9); Absolute Monocytes 0.8 K/uL (0.1-1.3); Absolute Neutrophil 8.8 K/uL (1.8-8.0); Basophils % 0.3 % (0-1.3); Hematocrit 28.8 % (36.0-45.0); Lymphocytes % 16.2 % (15.3-44.8); MPV 8.8 fL (7.6-11.3); Monocytes % 6.7 % (3.3-12.3); RBC Red Blood Cell Count 3.34 M/uL (3.86-4.86)
[2018-07-01 04:45] LABS: Potassium 4.2 mmol/L (3.5-5.1)
[2018-07-01] MEDS ORDERED: PANTOPRAZOLE 40MG TABLET PO SCH (06:30)
[2018-07-01] MEDS ORDERED: MORPHINE 4 MG/ML SYR IV ONE (07:33)
--- NOTE | 2018-07-01 07:44 | P.PN ---
Subjective Date of Service: 07/01/18 reports some pain with right shoulder this morning; block wore off last night Physical Examination - Vital Signs Temperature: 98.1 F Blood Pressure: 125/60 Pulse: 87 Respirations: 18 Pulse Ox (%): 99 - Physical Exam General: Alert, In no apparent distress Musculoskeletal: Other (RUE: dressing with minimal sanguionous drainage; sensation intact over lateral arm and throughout hand; +EPL/FPL/intrinsics) - Studies Laboratory Data (last 24 hrs) 07/01/18 04:13: Sodium 144, Potassium 4.2, BUN 16, Creatinine 0.75, Glucose 103 07/01/18 04:13: WBC 11.4 H D, Hgb 9.5 L D, Hct 28.8 L D, Plt Count 164 D 06/30/18 12:06: Hgb 12.0 D, Hct 36.9 D Assessment And Plan - Plan Sheri is a 67 yo female s/p right total shoulder arthroplasty POD#1 -PT to mobilize this AM -able to ambulate to the bathroom without problems -d/c if ambulates safely with PT
[2018-07-01] MEDS: PREGABALIN 150 MG CAP PO SCH (07:49)
[2018-07-01] MEDS: TIZANIDINE PO SCH ×2 (07:49→07:59)
[2018-07-01] MEDS ORDERED: SERTRALINE 100 MG PO SCH (09:00)
[2018-07-01] MEDS ORDERED: DRISDOL (VITAMIN D=ERGOCALCIFEROL) 50000 UNIT CAP PO SCH ×2 (09:00)
[2018-07-01] MEDS ORDERED: SERTRALINE HCL 100 MG TAB PO SCH (09:00)
== END 2018-07-01 11:35 | disposition home or self-care (01) | DRG 483 ==
LOC: OR 06:00 → 2ND 12:03 → OR 12:03 → 2ND 07-01 08:25
PROVIDERS: ADMIT Orthopaedic Surgery Sports Medicine; ATTEND Orthopaedic Surgery Sports Medicine
PROC: 0RRJ0JZ Replacement of Right Shoulder Joint with Synthetic Substitute, Open Approach (ICD-10-PCS; principal; 2018-06-30 07:30)
DX: M19.011 Primary osteoarthritis, right shoulder (principal); M25.511 Pain in right shoulder; K21.9 Gastro-esophageal reflux disease without esophagitis
CPT/HCPCS: 36415; 73020; 80048; 80076; 85014; 85018; 85025; 85610; 85730; 88304; 88305; 88311; 93005; 97163; J1100; J2250; J2370; J2704; J2795; J3010; P9045

== ENCOUNTER 2018-12-07 10:03 | Emergency (ER) | payer OTHER ==
--- OUTSIDE RECORDS SUMMARY | 2018-12-07 10:09 | XMS REPORT | Continuity of Care Document ---
:1950 Author Organization Interface Problems Problem Status Onset Date Classification Date Comments Source Reported Medications Medication Details Route Status Patient Ordering Order Source Instructions Provider Date Allergies, Adverse Reactions, Alerts Substance Category Reaction Severity Reaction Status Date Comments Source type Reported Immunizations Immunization Date Given Site Status Last Updated Comments Source Results Order Results Value Reference Date Interpretation Comments Source Name Range Vital Signs Vital Sign Value Date Comments Source Encounters Location Location Encounter Encounter Reason Attending ADM DC Status Source Details Type Number For Provider Date Date Visit Outpatient [id number] [place] 11[place]12 [facility] [place] [facility] [id number] [place] 11[place]12 11[place]13 [facility] [place] [facility] Procedures Procedure Code Date Perfomer Comments Source
--- OUTSIDE RECORDS SUMMARY | 2018-12-07 10:09 | XMS REPORT | Clinical Summary ---
:1950 Author Organization [facility] Address [address] [place] [address] Care Team Providers Name Role Phone Kathi [...] Vitamin D deficiency mouth once a week. sertraline (ZOLOFT) Take 2 60 tablet 5 11/01/2018 Active 100 MG tablet tablets (200 mg total) by mouth daily. clonAZEPAM (KlonoPIN) TAKE 1 TABLET 30 tablet 0 11/15/2018 Active 0.5 MG tablet BY MOUTH 9 EVERY 6 TO 8 HOURS NEEDED FOR ANXIETY. pravastatin Take 1 tablet 30 tablet 3 11/16/2018 Active (PRAVACHOL) 40 MG (40 mg total) tablet by mouth daily. dextromethorphan-guai Take 1 tablet 0 Discontinued fenesin (MUCINEX DM by mouth as 8 REGULAR) 30-600 mg needed. tablet extended release 12 hr zolpidem (AMBIEN) 10 Take 10 mg by 0 12/20/2015 Discontinued mg tablet mouth nightly 8 as needed. oxyCODone-acetaminoph TK 1 TABLET 0 11/09/2015 Discontinued en (PERCOCET) 10-325 BY MOUTH TID 8 mg per tablet TO QID cholecalciferol, TAKE ONE 8 capsule 1 04/30/2017 Discontinued vitamin D3, 50,000 CAPSULE BY 8 unit MOUTH TWICE capsuleIndications: PER WEEK Vitamin D deficiency sertraline (ZOLOFT) TAKE TWO 60 tablet 2 10/06/2017 Discontinued 100 MG tablet TABLETS BY 8 MOUTH DAILY nitrofurantoin, Take 1 14 capsule 0 12/18/2017 [...] Take 1 tablet 30 tablet 0 04/16/2018 Discontinued 0.5 MG tablet by mouth 8 every 6-8 hrs as needed for anxiety. pravastatin Take 1 tablet 30 tablet 5 04/21/2018 Discontinued (PRAVACHOL) 40 MG (40 mg total) 9 tablet by mouth daily. sertraline (ZOLOFT) Take 2 60 tablet 5 05/05/2018 Discontinued 100 MG tablet tablets (200 9 mg total) by mouth daily. zolpidem (AMBIEN) 10 Take 1 tablet 30 tablet 2 05/05/2018 Discontinued mg tablet (10 mg total) 9 by mouth nightly as needed for sleep for up to 90 days. azithromycin Take 2 6 tablet 0 06/18/2018 (ZITHROMAX Z-ELIZA) 250 tablets the 9 MG tabletIndications: first day, Cough then 1 tablet daily for 4 days. QUEtiapine (SEROquel) Take 1 tablet 30 tablet 1 07/07/2018 Discontinued 25 MG tablet (25 mg total) 9 by mouth nightly. zolpidem (AMBIEN) 10 Take 1 tablet 30 tablet 3 08/20/2018 mg tablet (10 mg total) 9 by mouth nightly as needed for sleep for up to 30 days. 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 Encounters Date Type Specialty Care Team Description 12/07/2018 Telephone Access Richard Mckeon RN 12/07/2018 Nurse Triage Access Richard Mckeon RN 11/15/2018 Refill Family Kathi Aceves MD 11/15/2018 Refill Family Medicine Kathi Schultz MD 11/01/2018 Refill Family Kathi Aceves MD 09/04/2018 Refill Family Kathi Aceves MD 08/31/2018 Refill Family Medicine Kathi Schultz MD 08/20/2018 Telephone Internal Medicine Kathi Schultz MD 08/18/2018 Telephone Internal Medicine Kathi Schultz MD 08/03/2018 Office Visit Orthopedic Surgery Dallas Pickering Right hip pain MD Vic (Primary Dx) 08/02/2018 Refill Family Medicine Kathi Schultz MD 08/02/2018 Orders Only Orthopedic Surgery Sarah Gonzales, Pain of right hip MA joint (Primary Dx) 07/05/2018 Telephone Family Medicine Kathi Schultz MD 06/18/2018 Office Visit Family Medicine Kathi Schultz Preoperative clearance (Primary Dx); MD Warren Primary osteoarthritis of right shoulder; Cough 06/03/2018 Telephone Family Medicine Kathi Schultz MD 05/21/2018 Telephone Internal Medicine Kathi Schultz MD 05/04/2018 Telephone Family Kathi Aceves MD 05/04/2018 Refill Family Kathi Aceves MD 04/21/2018 Telephone Family Medicine Kathi Schultz MD 04/16/2018 Telephone Internal Medicine Kathi Schultz MD 04/15/2018 Refill Family Medicine Kathi Schultz Vitamin D deficiency MD Warren 04/12/2018 Lab Lab Kathi Schultz Pure hypercholesterolemia; MD Warren Urinary incontinence without sensory awareness; Osteopenia of lumbar spine; Vitamin D deficiency; Chronic cough; Acute chest wall pain; Recurrent major depressive disorder, in partial remission (HCC) 04/12/2018 Office Visit Family Kathi Aceves Annual visit for general adult medical examination [...] Urge incontinence; Nocturia 12/29/2017 Refill Family Medicine Ktahi Schultz MD 12/25/2017 Lab Lab Kathi Schultz Urinary tract MD Warren infection without hematuria, site unspecified 12/22/2017 Telephone Family Medicine Kathi Schultz Urinary tract MD Warren infection without hematuria, site unspecified (Primary Dx) 12/18/2017 Office Visit Family Kathi Aceves Dysuria (Primary Dx); MD Warren Nocturnal enuresis; Urge incontinence 12/18/2017 Nurse Triage Access Abby Kapadia RN after 12/06/2017 Immunizations Name Dates Previously Given Next Due [...] Taken Blood Pressure 118/75 06/18/2018 3:11 PM [employer] Pulse 73 06/18/2018 3:11 PM [employer] Temperature 37.2 C (99 F) 06/18/2018 3:11 PM [employer] Respiratory Rate - - Oxygen Saturation 97% 06/18/2018 3:11 PM [employer] Inhaled Oxygen Concentration - - Weight 65.8 kg (145 lb) 06/18/2018 3:11 PM [employer] Height 157.5 cm (5' 2") 06/18/2018 3:11 PM [employer] Body Mass Index 26.52 06/18/2018 3:11 PM [employer] Plan of Treatment Health Maintenance Due Date Last Done Comments BREAST CANCER SCREENING 10/21/1999 COLONOSCOPY SCREENING 10/21/1999 SHINGLES VACCINES (#1) 10/21/1999 INFLUENZA VACCINE 01/13/2019 04/12/2018, 09/25/2016 65+ PNEUMOCOCCAL VACCINE Completed 04/12/2018, 09/25/2016 Implants Implanted Type Area Fruit And Vegetable Inspector Device Shelf Model / Serial / Identifier Expiration Lot Date Shell Actblr Mul-Hl Sz Jj 54mm Continuum - [id number] Hip Joint Right [employer] 06/14/2025 [id number] / Implanted: Qty: 1 on 11/05/2015 Implants : Hip / [id number] Shell Actblr Mul-Hl Sz Jj 54mm Continuum - [id number] Hip Joint Right [employer] 06/14/2025 [id number] / Implanted: Qty: 1 on 11/05/2015 Implants : Hip / [id number] Putty Dbm Dbx 10cc - [id number] - [id number] Human Right MUSCULOSKELETAL 04/13/2017 [id number] / Implanted: Qty: 1 on 11/05/2015 Tissue : Hip TRANSPLANT [id number] / Implants [employer] Head Fml 05/28 Tprd Mtl 36x+8.5mm Articul/Yuri Ultamet - [id number] Orthopedic Right DEPUY ORTHO 08/07/2019 [id number] / Implanted: Qty: 1 on 11/05/2015 Trauma : Hip / Implants [id number] Cancellous Chips, 30cc Right 07/04/2018 / Implanted: Qty: 1 on 11/05/2015 : Hip [id number] / Neutral Liner Right 05/14/2020 / Implanted: Qty: 1 on 11/05/2015 : Hip / [id number] Bone Screw Right 08/12/2025 / Implanted: Qty: 1 on 11/05/2015 : Hip / [id number] Bone Screw Right 01/12/2025 / Implanted: Qty: 1 on 11/05/2015 : Hip / [id number] Procedures Procedure Name Priority Date/Time Associated Diagnosis Comments XR HIP 2-3 VIEWS Routine 08/03/2018 Pain of right hip joint Results for RIGHT 10:19 AM [employer] this procedure are in the results section. XR CHEST 2 VW Routine 06/18/2018 Preoperative clearance Results for 3:58 PM [employer] Primary osteoarthritis of this procedure right shoulder [...] Urinary urgency COMPLEX (LPP) 2:21 PM CDT [id number] Routine 01/20/2018 Nocturia Results for 10:07 AM [...] this procedure are in the results section. after 12/06/2017 Results XR Hip 2-3 View Right (08/03/2018 10:19 AM [employer]) Specimen Narrative Performed At Right hip xray shows status post right total hip arthroplasty with HM RADIANT components in good place. No signs of osteolysis or loosening. No fractures noted.Two screws in acetabulum. Performing Organization Address City/State/Zipcode Phone Number [facility] [address] [place] [address] XR Chest 2 Vw (06/18/2018 3:58 PM [employer])Only the most recent of2 resultswithin the time period is included. Specimen Narrative Performed At EXAMINATION:XR CHEST 2 VW [facility]ANT CLINICAL HISTORY:Z01.818 Encounter for other preprocedural examination, M19.011 Primary osteoarthritisright shoulder, coughpre-op clearance COMPARISON:04/13/2018 IMPRESSION: Lungs are clear without infiltrate, pleural effusion or pneumothorax. Cardiomediastinal silhouette is unremarkable. Osseous degenerative changes and mild osseous demineralization. Cranial extent of posterior spinal fusion partly visualized. Kyphoplasty changes lower thoracic/upper lumbar vertebra. [id number] Procedure Note Interface, Radiology Results Incoming - 06/18/2018 4:05 PM [employer] EXAMINATION: XR CHEST 2 VW CLINICAL HISTORY: Z01.818 Encounter for other preprocedural examination, M19.011 Primary osteoarthritis right shoulder, cough pre-op clearance COMPARISON: 04/13/2018 IMPRESSION: Lungs are clear without infiltrate, pleural effusion or pneumothorax. Cardiomediastinal silhouette is unremarkable. Osseous degenerative changes and mild osseous demineralization. Cranial extent of posterior spinal fusion partly visualized. Kyphoplasty changes lower thoracic /upper lumbar vertebra. [id number] Performing Organization Address [facility] Phone Number [facility] [address] [place] [address] XR Ribs 3 Vw Bilateral (04/13/2018 1:06 PM CDT) Specimen Narrative Performed At EXAMINATION:XR RIBS 3 VW BILATERAL [facility] CLINICAL HISTORY:R07.89 Other chest pain, R and L sided chest wall painR side due to leaning over bath tubawoke with L sided pain today (cause) COMPARISON:None. IMPRESSION: Nondisplaced right anterior sixth and eighth rib fracture suspected in the costochondral junction. Correlate for point tenderness. [id number] Procedure Note Interface, Radiology Results Incoming - 04/13/2018 5:12 [...] the costochondral junction. Correlate for point tenderness. [id number] Performing Organization Address [facility] Phone Number [facility] [address] [place] [address] URINALYSIS, COMPLETE, WITH REFLEX TO CULTURE (04/12/2018 9:57 AM CDT) Color, UA DARK YELLOW YELLOW [facility] [place] Appearance CLEAR CLEAR [facility] [place] Specific gravity, 1.030 1.001 - 1.035 [facility] urine [facility] pH, urine 7.5 5.0 - 8.0 [facility] [place] Glucose, urine NEGATIVE NEGATIVE [facility] [place] Bilirubin, UA NEGATIVE NEGATIVE [facility] [place] Ketones, UA TRACE (A) NEGATIVE [facility] [place] Occult blood, NEGATIVE NEGATIVE [facility] urine [place] Protein, UA TRACE (A) NEGATIVE [facility] [place] Nitrite, UA NEGATIVE NEGATIVE [facility] [place] Leukocyte TRACE (A) NEGATIVE [facility] esterase, UA [facility] WBC, UA NONE SEEN < OR=5 /HPF [facility] [place] RBC, UA 0-2 < OR=2 /HPF [facility] [place] Squamous 0-5 < OR=5 /HPF [facility] epithelial cells, [facility] UA Bacteria, UA NONE SEEN NONE SEEN /HPF [facility] [place] Hyaline casts, UA NONE SEEN NONE SEEN /LPF [facility] [place] Reflex CULTURE [facility] RESULTS TO FOLLOW Specimen Blood Resulting Agency Comment Performing Organization Information: Site ID: [id number] Name: [facility] Address: [address] [place] [phone] Director: Pina Peralta Performing Organization Address City/State/[place] [address] Vitamin D 25 hydroxy level (04/12/2018 9:57 AM CDT) Vitamin D, 28 (L) 30 - 100 [facility] 25-hydroxy Comment: ng/mL [facility] Vitamin D Status 25-OH Vitamin D: Deficiency:<20 ng/mL Insufficiency: 20 - 29 ng/mL Optimal: > or=30 ng/mL For 25-OH Vitamin D testing on patients on D2-supplementation and patients for whom quantitation of D2 and D3 fractions is required, the QuestAssureD(TM) 25-OH VIT D, (D2,D3), LC/MS/MS is recommended: order code 68692 (patients >2yrs). For more information on this test, go to: http://education.[employer]/faq/EGN035 (This link is being provided for informational/educational purposes only.) Specimen Blood Resulting Agency Comment Performing Organization Information: Site ID: [id number] Name: [facility] Address: [address] [place] [phone] Director: Pina Peralta Performing Organization Address City/[facility] Phone Number BIBI [facility] SYD [facility] [address] [place] [address] CBC with platelet and differential (04/12/2018 9:57 AM CDT) Pathologist [facility] WBC 6.6 3.8 - 10.8 [facility] Thousand/uL [facility] RBC 5.05 3.80 - 5.10 [facility] Million/uL [facility] HGB 14.3 11.7 - 15.5 [facility] g/dL [facility] HCT 43.8 35.0 - 45.0 % deeplocal [facility] MCV 86.7 80.0 - 100.0 fL [facility] [place] MCH 28.3 27.0 - 33.0 pg [facility] MCHC 32.6 32.0 - 36.0 [facility] g/dL [facility] RDW 14.5 11.0 - 15.0 % [facility] [place] Platelet count 232 140 - 400 [facility] Thousand/uL [facility] MPV 10.9 7.5 - 12.5 fL [facility] Neutrophils, absolute 3,947 1,500 - 7,800 [facility] cells/uL [facility] Lymphocytes, absolute 1,980 850 - 3,900 [facility] cells/uL [place] Monocytes, absolute 475 200 - 950 [facility] cells/uL [facility] Eosinophils, absolute 139 15 - 500 [facility] cells/uL [facility] Basophils, absolute 59 0 - 200 [facility] cells/uL [facility] Neutrophils 59.8 % [facility] [place] Lymphocytes 30.0 % [facility] [place] Monocytes 7.2 % [facility] Eosinophils 2.1 % [facility] [place] Basophils + RC 0.9 % [facility] Specimen Blood Resulting Agency Comment Performing Organization Information: Site ID: [id number] Name: [facility] Address: [address] [place] [phone] Director: Pina Peralta Performing Organization Address City/[facility]/Zipcode Phone Number BIBI VELARDE [facility] [address] [place] [address] Urine culture (04/12/2018 9:57 AM CDT)Only the most recent of3 resultswithin the time period is included. Pathologist [facility] Urine culture SEE NOTE (A) [facility] Comment: [facility] CULTURE, URINE, ROUTINE MICRO NUMBER:[id number] TEST STATUS: FINAL SPECIMEN SOURCE: URINE SPECIMEN [...] cefdinir, cefpodoxime, cefprozil, cefuroxime, cephalexin and loracarbef. Specimen Resulting Agency Comment Performing Organization Information: Site ID: [facility] Name: [facility] Address: [address] [place] [phone] Director: Pina Peralta Performing Organization Address [facility] Phone Number [place] [phone] Thyroid stimulating hormone (04/12/2018 9:57 AM CDT) [facility] TSH 0.83 0.40 - 4.50 mIU/L [facility] Specimen Blood Resulting Agency Comment Performing Organization Information: Site ID: [facility] Name: [facility] Address: [address] [place] [phone] Director: Pina Peralta Performing Organization Address City/State/Zipcode Phone Number [place] [facility] [address] [place] [address] Lipid panel (04/12/2018 9:57 AM CDT) [facility] Cholesterol, total 301 (H) <200 mg/dL [facility] HDL cholesterol 46 (L) >50 mg/dL [facility] Triglycerides 372 (H) <150 mg/dL [facility] LDL cholesterol 192 (H) mg/dL [facility] Comment: (calc) DIAGNOSTICS LDL-C levels > zj=113 mg/dL may indicate familial [facility] hypercholesterolemia (FH). Clinical assessment and measurement of blood lipid levels should be considered for all first degree relatives of patients with an FH diagnosis. For questions about testing for familial hypercholesterolemia, please call [employer] at [phone].[employer]INFO. Arline Scott, et al. J National Lipid Association Recommendations for Patient-Centered Management of Dyslipidemia: Part 1 Journal of Clinical Lipidology 2015;9(2), 129-169. Reference range: <100 Desirable range <100 mg/dL for primary prevention; <70 mg/dL for patients with CHD or diabetic patients with > or=2 CHD risk factors. LDL-C is now calculated using the Lonny-Sandoval calculation, which is a validated novel method providing better accuracy than the Friedewald equation in the estimation of LDL-C. Lonny SS et al. CHASTITY. 2013;310(19): 8895-1502 (http://education.[employer] Daily/faq/AMI802) Cholesterol/HDL 6.5 (H) <5.0 [facility] ratio (calc) [facility] Non-HDL 255 (H) <130 mg/dL [facility] cholesterol Comment: (calc) DIAGNOSTICS Non-HDL level > cs=932 is very high and may indicate [facility] genetic familial hypercholesterolemia (FH). Clinical assessment and [...] Performing Organization Information: Site ID: RGA Name: [facility] Address: [address] [place] [address] Director: Pina Peralta Performing Organization Address [facility]/Zipcode Phone Number [place] [facility] [address] [place] [address] Comprehensive metabolic panel (04/12/2018 9:57 AM CDT) Pathologist [facility] Glucose 97 65 - 99 [facility] Comment: mg/dL [facility] Fasting reference interval BUN, whole blood 18 7 - 25 mg/dL [facility] Creatinine 0.97 0.50 - 0.99 [facility] Comment: mg/dL [facility] For patients >49 years of age, the reference limit for Creatinine is approximately 13% higher for people identified as -[place]icaraguan. EGFR Non-Afr. 60 > OR=60 [facility] [place] mL/min/1.73m [facility] 2 EGFR 70 > OR=60 [facility] [place] mL/min/1.73m [facility] 2 BUN/creatinine NOT APPLICABLE 6 - 22 [facility] ratio (calc) [facility] Sodium 141 135 - 146 [facility] mmol/L [facility] Potassium 4.8 3.5 - 5.3 [facility] mmol/L [facility] Chloride 102 98 - 110 [facility] mmol/L [facility] CO2 31 20 - 32 [facility] mmol/L [facility] Calcium 9.8 8.6 - 10.4 [facility] mg/dL [facility] Protein 7.2 6.1 - 8.1 [facility] g/dL [facility] Albumin, S 4.5 3.6 - 5.1 [facility] g/dL [facility] Globulin, total 2.7 1.9 - 3.7 [facility] g/dL (calc) [facility] Albumin/globulin 1.7 1.0 - 2.5 [facility] ratio (calc) [facility] Total bilirubin 0.4 0.2 - 1.2 [facility] mg/dL [facility] Alkaline 90 33 - 130 U/L [facility] phosphatase [facility] AST 13 10 - 35 U/L [facility] ALT 11 6 - 29 U/L [facility] Specimen Blood Resulting Agency Comment Performing Organization Information: Site ID: RGA Name: [facility] Address: [address] [place] [address] Director: Pina Peralta Performing Organization Address [facility]/Zipcode Phone Number [place] [facility] [address] [place] [phone] Occult blood, stool (04/12/2018 9:36 AM CDT) Fecal globin SEE NOTE [facility] result Comment: [facility] FECAL GLOBIN BY IMMUNOCHEMISTRY MICRO NUMBER:[id number] TEST STATUS: FINAL SPECIMEN SOURCE: INSURE (TM) FOBT TEST CARD SPECIMEN QUALITY:ADEQUATE RESULT:Not Detected Specimen Stool Resulting Agency Comment Performing Organization Information: Site ID: RGA Name: [facility] Address: [address] [place] [phone] Director: Pina Peralta Performing Organization Address City/State/Zipcode Phone Number [place] [phone] POC urinalysis dipstick (03/01/2018 3:00 PM CDT)Only the most recent of3 resultswithin the time period is included. Color urine, POC Yellow Clarity urine, POC Clear Glucose urine, POC Negative Negative Bilirubin urine, POC Negative Negative Ketones urine, POC Negative Negative Specific gravity urine, 1.020 1.005 - 1.030 POC Blood urine, POC Negative Negative pH urine, POC 6.0 5.0, 5.5, 6.0, 6.5, 7.0, 7.5, 8.0, 8.5 Protein urine, POC Negative Negative Urobilinogen urine, POC <2.0 <2.0 Nitrite urine, POC Negative Negative Leukocyte esterase Trace (A) Negative urine, POC Specimen Urine VPS intermed (FR, EMG, Pves-Pabd: [...] period is included. Color, UA YELLOW [facility]LLOW [facility] Appearance CLEAR CLEAR [facility] Specific gravity, 1.026 1.001 - 1.035 [facility] urine [facility] pH, urine 6.5 5.0 - 8.0 [facility] Glucose, urine NEGATIVE NEGATIVE [facility] Bilirubin, UA NEGATIVE NEGATIVE [facility] Ketones, UA NEGATIVE NEGATIVE [facility] Occult blood, urine NEGATIVE NEGATIVE [facility] Protein, UA NEGATIVE NEGATIVE [facility] Nitrite, UA NEGATIVE NEGATIVE [facility] Leukocyte esterase, NEGATIVE NEGATIVE [facility] UA [facility] WBC, UA NONE SEEN < OR=5 /HPF [facility] RBC, UA 0-2 < OR=2 /HPF [facility] Squamous epithelial NONE SEEN < OR=5 /HPF [facility] cells, UA [facility] Bacteria, UA NONE SEEN NONE SEEN /HPF [facility] Hyaline casts, UA NONE SEEN NONE SEEN /LPF [facility] Specimen Urine Resulting Agency Comment Performing Organization Information: Site ID: RGA Name: [facility] Address: [address] [place] [address] Director: Pina Peralta Performing Organization Address City/State/Zipcode Phone Number [facility] [address] [place] [address] after 12/06/2017 Insurance Payer Benefit Plan / Subscriber ID Effective Phone Address Type Group Dates MEDICARE MEDICARE PART xxxxxxxxxxx 2014-[place], [place] Medicare A AND B nt MUTUAL OF M[employer] OF xxxxxxxx 2014-[facility] Commercial MILLE LACS MILLE LACS nt Advance Directives Patient has advance care planning documents on file. For more information, please contact:Derick [address] [place] [address]
--- OUTSIDE RECORDS SUMMARY | 2018-12-07 10:09 | XMS REPORT | Summary of Care ---
:1950 Author Organization [facility] [place] Address [address] [place] [address]- Encounter HQ Encntr_alias(FIN) [id number] Date(s): 11/12/18 - 11/12/18 [facility] [place] [address], [place] [address]- [phone] Discharge Disposition: Home or Self Care Attending Physician: Horacio Mathews MD Referring Physician: Alexey Sheldon MD Vital Signs No data available for this section Problem List No data available for this section Allergies, Adverse Reactions, Alerts No data available for this section Medications No data available for this section Results No data available for this section Immunizations No data available for this section Procedures No data available for this section Social History No data available for this section Assessment and Plan No data available for this section
--- OUTSIDE RECORDS SUMMARY | 2018-12-07 10:10 | XMS REPORT ---
[...] End Status Dosage System Date Date Prevacid [facility] 63725586662 15 MG Orally Jan 19, Active 1 capsule Once a day 2017 Zoloft [facility] 34718894207 100 mg Oral Jan 19, Active 2 tab 2018 Imitrex [facility] 77166164633 100 MG Orally Active 1 tablet as Twice a day needed Clonazepam [facility] 63611561347 0.25 MG Orally Active 1 tablet on Once a day the tongue and allow to dissolve before bedtime Lyrica [facility] 81007249185 25 MG Orally Jan 19, Active 2 capsules Twice a day 2017 Meloxicam [facility] 07000823657 15 MG Orally Jan 19, Active 1 tablet Once a day 2018 Ambien [facility] 01560076641 10 MG Orally Jan 19, Active 1 tablet at Once a day 2018 bedtime as needed Pravastatin [facility] 98676243197 40 MG Orally Active 1 tablet Sodium Once a day clindamycin [facility] 0 Jan 19, Active not defined 2018 Oxycodone-Acetam [facility] 83053418599 7.5-325 MG Oral Active (Schedule inophen II Drug) TK 1 T PO TID Pantoprazole [facility] 75270462207 40 MG Orally Jan 19, Active 1 tablet Sodium Once a day 2018 Results No Known Results Summary Purpose eClinicalWorks Submission
--- OUTSIDE RECORDS SUMMARY | 2018-12-07 10:10 | XMS REPORT ---
[...] End Status Dosage System Date Date clindamycin [facility] 0 Jan 19, Active not defined 2017 Ambien [facility] 97412002122 10 MG Orally Jan 19, Active 1 tablet at Once a day 2018 bedtime as needed Meloxicam [facility] 36369900585 15 MG Orally Jan 19, Active 1 tablet Once a day 2017 Pantoprazole [facility] 60735650192 40 MG Orally Jan 19, Active 1 tablet Sodium Once a day 2017 Oxycodone-Acetam [facility] 12050420925 7.5-325 MG Oral Active (Schedule inophen II Drug) TK 1 T PO TID Zoloft [facility] 48220785932 100 mg Oral Jan 19, Active 2 tab 2018 Prevacid [facility] 74118150763 15 MG Orally Jan 19, Active 1 capsule Once a day 2017 Lyrica [facility] 12087889402 25 MG Orally Jan 19, Active 2 capsules Twice a day 2018 Results No Known Results Summary Purpose eClinicalWorks Submission
--- OUTSIDE RECORDS SUMMARY | 2018-12-07 10:10 | XMS REPORT ---
:1950 Author Organization eClinicalWorks Care Team Providers Name Role Phone Alexey Sheldon Provider Role Unavailable Allergies No Known Allergies Problems Problem Type Condition Code Onset Dates Condition Status Problem Primary osteoarthritis of right M19.011 Active shoulder Medications No Known Medications Results No Known Results Summary Purpose eClinicalWorks Submission
--- OUTSIDE RECORDS SUMMARY | 2018-12-07 10:10 | XMS REPORT ---
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 Problem Primary osteoarthritis of right M19.011 Active shoulder Medications Medication Code Code Instructions Start End Status Dosage System Date Date Clonazepam [facility] 42883752636 0.25 MG Orally Active 1 tablet on Once a day the tongue and allow to dissolve before bedtime Oxycodone-Acetam [facility] 53497907287 7.5-325 MG Oral Active (Schedule inophen II Drug) TK 1 T PO TID Prevacid [facility] 91319591389 15 MG Orally Jan 19, Active 1 capsule Once a day 2017 Zoloft [facility] 45834409786 100 mg Oral Jan 19, Active 2 tab 2018 Pantoprazole [facility] 17245452533 40 MG Orally Jan 19, Active 1 tablet Sodium Once a day 2017 Lyrica [facility] 03678216742 25 MG Orally Jan 19, Active 2 capsules Twice a day 2017 Ambien [facility] 76547139890 10 MG Orally Jan 19, Active 1 tablet at Once a day 2018 bedtime as needed Pravastatin [facility] 39679159778 40 MG Orally Active 1 tablet Sodium Once a day Meloxicam [facility] 68377623989 15 MG Orally Jan 19, Active 1 tablet Once a day 2017 Imitrex [facility] 91249562195 100 MG Orally Active 1 tablet as Twice a day needed clindamycin [facility] 0 Jan 19, Active not defined 2018 Results No Known Results Summary Purpose eClinicalWorks Submission
--- OUTSIDE RECORDS SUMMARY | 2018-12-07 10:10 | XMS REPORT ---
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 79337930091 25 MG Orally Jan 19, Active 2 capsules Twice a day 2017 Zoloft [facility] 86248614356 100 mg Oral Jan 19, Active 2 tab 2018 Clonazepam [facility] 93436483625 0.25 MG Orally Active 1 tablet on Once a day the tongue and allow to dissolve before bedtime Ambien [facility] 62210639091 10 MG Orally Jan 19, Active 1 tablet at Once a day 2018 bedtime as needed Prevacid [facility] 19714984338 15 MG Orally Jan 19, Active 1 capsule Once a day 2018 Pantoprazole [facility] 00267595033 40 MG Orally Jan 19, Active 1 tablet Sodium Once a day 2017 Imitrex [facility] 88657743154 100 MG Orally Active 1 tablet as Twice a day needed clindamycin [facility] 0 Jan 19, Active not defined 2018 Pravastatin [facility] 45831407300 40 MG Orally Active 1 tablet Sodium Once a day Oxycodone-Acetam [facility] 18310130875 7.5-325 MG Oral Active (Schedule inophen II Drug) TK 1 T PO TID Meloxicam [facility] 84051615944 15 MG Orally Jan 19, Active 1 tablet Once a day 2018 Results No Known Results Summary Purpose eClinicalWorks Submission
--- OUTSIDE RECORDS SUMMARY | 2018-12-07 10:10 | XMS REPORT ---
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
--- OUTSIDE RECORDS SUMMARY | 2018-12-07 10:10 | XMS REPORT ---
[...] osteoarthritis of right M19.011 Active shoulder Assessment Acute pain of right shoulder M25.511 Active Medications Medication Code Code Instructions Start End Status Dosage System Date Date Pantoprazole [facility] 56170523388 40 MG Orally Jan 19, Active 1 tablet Sodium Once a day 2017 Meloxicam [facility] 96631242073 15 MG Orally Jan 19, Active 1 tablet Once a day 2017 clindamycin [facility] 0 Jan 19, Active not defined 2017 Ambien [facility] 84506508960 10 MG Orally Jan 19, Active 1 tablet at Once a day 2018 bedtime as needed Lyrica [place] 51326274977 25 MG Orally Jan 19, Active 2 capsules Twice a day 2017 Zoloft [facility] 64617001406 100 mg Oral Jan 19, Active 2 tab 2018 Imitrex [facility] 96833936499 100 MG Orally Active 1 tablet as Twice a day needed Clonazepam [facility] 72265015886 0.25 MG Orally Active 1 tablet on Once a day the tongue and allow to dissolve before bedtime Pravastatin [facility] 44561709102 40 MG Orally Active 1 tablet Sodium Once a day Oxycodone-Acetam [facility] 33615744391 7.5-325 MG Oral Active (Schedule inophen II Drug) TK 1 T PO TID Prevacid [facility] 35824252708 15 MG Orally Jan 19, Active 1 capsule Once a day 2018 Results No Known Results Summary Purpose eClinicalWorks Submission
--- OUTSIDE RECORDS SUMMARY | 2018-12-07 10:10 | XMS REPORT ---
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 08548117395 40 MG Orally Jan 19, Active 1 tablet Sodium Once a day 2017 Meloxicam [facility] 24055249844 15 MG Orally Jan 19, Active 1 tablet Once a day 2017 Ambien [facility] 62315516700 10 MG Orally Jan 19, Active 1 tablet at Once a day 2018 bedtime as needed Clonazepam [facility] 31606079787 0.25 MG Orally Active 1 tablet on Once a day the tongue and allow to dissolve before bedtime Lyrica [facility] 79677299447 25 MG Orally Jan 19, Active 2 capsules Twice a day 2017 Prevacid [facility] 43315823658 15 MG Orally Jan 19, Active 1 capsule Once a day 2017 Pravastatin [facility] 07826119517 40 MG Orally Active 1 tablet Sodium Once a day clindamycin [facility] 0 Jan 19, Active not defined 2017 Imitrex [facility] 36101119016 100 MG Orally Active 1 tablet as Twice a day needed Oxycodone-Acetam [facility] 87784429201 7.5-325 MG Oral Active (Schedule inophen II Drug) TK 1 T PO TID Zoloft ND 94583643289 100 mg Oral Jan 19, Active 2 tab 2018 Results No Known Results Summary Purpose eClinicalWorks Submission
[2018-12-07 11:20] LABS: Absolute Lymphocytes (CBC) 1.9 K/uL (0.7-4.9); Basophils % 0.4 % (0-1.3); Eosinophils % 1.4 % (0-4.4); Hematocrit 40.8 % (36.0-45.0); Lymphocytes % 18.6 % (15.3-44.8); MPV 8.8 fL (7.6-11.3); Monocytes % 8.6 % (3.3-12.3); RBC Red Blood Cell Count 4.97 M/uL (3.86-4.86)
[2018-12-07] MEDS ORDERED: IPRATROPIUM BROM 0.5MG/2.5ML ONE (11:28)
[2018-12-07] MEDS ORDERED: LEVALBUTEROL 1.25 MG/3 ML NEB ONE (11:28)
[2018-12-07 11:32] LABS: Potassium 4.3 mmol/L (3.5-5.1)
--- NOTE | 2018-12-07 11:38 | RAD REPORT ---
EXAM DESCRIPTION: RAD - Chest Pa And Lat (2 Views) - 12/07/2018 11:25 am CLINICAL HISTORY: Cough;Congestion Chest pain. COMPARISON: Chest Pa And Lat (2 Views) dated 08/08/2016; Chest Pa And Lat (2 Views) dated 07/21/2016; C hest Pa And Lat (2 Views) dated 06/28/2016; Chest Single View dated 06/19/2016 TECHNIQUE: PA and lateral views of the chest were obtained. FINDINGS: The lungs are hyperexpanded compatible with COPD. The heart is upper limit of normal in si ze. No fracture or aggressive bony process. IMPRESSION: COPD without acute process identified.
--- NOTE | 2018-12-07 12:02 | EDPHYS ---
Physician Documentation [facility] Name: Sheri Freeman Age: 68 yrs Sex: Female : 1950 Arrival Date: 12/07/2018 Time: 10:05 Bed 19 Private MD: out of town, doctor ED Physician Manish Bustos HPI: 12/07 10:55 This 68 yrs old Female presents to ER via Wheelchair with complaints of kb Fever, Breathing Difficulty. 10:55 The patient or guardian reports cough, that is intermittent, described as moderate, kb with no sputum, flu symptoms, arthralgias, low-grade fever, myalgias. Onset: The symptoms/episode began/occurred 1 week(s) ago. Severity of symptoms: At their worst the symptoms were moderate, in the emergency department the symptoms are unchanged. Modifying factors: The symptoms are alleviated by nothing, the symptoms are aggravated by nothing. Associated signs and symptoms: Pertinent positives: fever, Pertinent negatives: chest pain, diarrhea, ear ache, nausea, rhinorrhea, sore throat, vomiting. The patient has experienced similar episodes in the past, a few times. The patient has not recently seen a physician. Pt reports she has had a cough, body aches and shortness of breath for many years, but it got worse about a week ago and she started feeling bad. States she started running fever last night so that is why she came in. . Historical: - Allergies: 10:35 BEE STINGS; ss 10:35 Effexor XR; ss 10:35 PENICILLINS; ss 10:35 Sulfa (Sulfonamide Antibiotics); ss - PMHx: 10:35 Arthritis; Back pain; Chronic pain; Depression; GERD; High Cholesterol; Migraines; ss osteoarthritis; - PSHx: 10:35 R hip replacement; partial L knee replacement; lumbar fusions; vertebroplasty; ss - Immunization history:: Adult Immunizations up to date. - Social history:: Smoking status: Patient/guardian denies using tobacco. - Ebola Screening: : Patient denies exposure to infectious person Patient denies travel to an Ebola-affected area in the 21 days before illness onset. ROS: 10:54 ENT: Negative for injury, pain, and discharge, Neck: Negative for injury, pain, and kb swelling, Cardiovascular: Negative for chest pain, palpitations, and edema, Abdomen/GI: Negative for abdominal pain, nausea, vomiting, diarrhea, and constipation, MS/Extremity: Negative for injury and deformity, Skin: Negative for injury, rash, and discoloration, Neuro: Negative for headache, weakness, numbness, tingling, and seizure. 10:54 Constitutional: Positive for body aches, fever, Negative for fatigue, malaise, poor PO intake, weight loss. 10:54 Respiratory: Positive for cough, dyspnea on exertion, shortness of breath, wheezing, Negative for hemoptysis, orthopnea, pleurisy. Exam: 10:54 Constitutional: This is a well developed, well nourished patient who is awake, alert, kb and in no acute distress. Head/Face: Normocephalic, atraumatic. ENT: Nares patent. No nasal discharge, no septal abnormalities noted. Tympanic membranes are normal and external auditory canals are clear. Oropharynx with no redness, swelling, or masses, exudates, or evidence of obstruction, uvula midline. Mucous membranes moist. Neck: Trachea midline, no thyromegaly or masses palpated, and no cervical lymphadenopathy. Supple, full range of motion without nuchal rigidity, or vertebral point tenderness. No Meningismus. Chest/axilla: Normal chest wall appearance and motion. Nontender with no deformity. No lesions are appreciated. Cardiovascular: Regular rate and rhythm with a normal S1 and S2. No gallops, murmurs, or rubs. Normal PMI, no JVD. No pulse deficits. Respiratory: Lungs have equal breath sounds bilaterally, clear to auscultation and percussion. No rales, rhonchi or wheezes noted. No increased work of breathing, no retractions or nasal flaring. Abdomen/GI: Soft, non-tender, with normal bowel sounds. No distension or tympany. No guarding or rebound. No evidence of tenderness throughout. Back: No spinal tenderness. No costovertebral tenderness. Full range of motion. Skin: Warm, dry with normal turgor. Normal color with no rashes, no lesions, and no evidence of cellulitis. MS/ Extremity: Pulses equal, no cyanosis. Neurovascular intact. Full, normal range of motion. Neuro: Awake and alert, GCS 15, oriented to person, place, time, and situation. Cranial nerves II-XII grossly intact. Motor strength 5/5 in all extremities. Sensory grossly intact. Cerebellar exam normal. Normal gait. Vital Signs: 10:35 BP 99 / 60; Pulse 92; Resp 16; Temp 98.6(TE); Pulse Ox 93% on R/A; Weight 68.04 kg; ss Height 5 ft. 2 in. (157.48 cm); Pain 2/10; 11:44 BP 98 / 52; Pulse 80; Resp 19; Pulse Ox 99% on Nebulizer Mask; ae4 12:25 BP 114 / 62; Pulse 82; Resp 19; Pulse Ox 96% on R/A; ae4 10:35 Body Mass Index 27.44 (68.04 kg, 157.48 cm) ss MDM: 10:38 Patient medically screened. kb 10:54 Data reviewed: vital signs, nurses notes. Data interpreted: Pulse oximetry: on room air kb is 93 %. Interpretation: borderline. 11:55 Counseling: I had a detailed discussion with the patient and/or guardian regarding: the kb historical points, exam findings, and any diagnostic results supporting the discharge/admit diagnosis, lab results, radiology results, the need for outpatient follow up, a family practitioner, to return to the emergency department if symptoms worsen or persist or if there are any questions or concerns that arise at home. 11:59 ED course: Pt treated with antibiotics due to underlying lung disease and symptoms. Pt kb traveling to [place] tomorrow as well . 12/07 10:39 Order name: CBC with Diff; Complete Time: 11:27 kb 12/07 10:39 Order name: Basic Metabolic Panel; Complete Time: 11:33 kb 12/07 10:39 Order name: Procalcitonin; Complete Time: 11:54 kb 12/07 10:39 Order name: Lactate; Complete Time: 11:40 kb 12/07 10:39 Order name: Flu; Complete Time: 11:40 kb 12/07 11:10 Order name: Urine Dipstick--Ancillary (enter results); Complete Time: 12:22 ag 12/07 10:39 Order name: IV Start; Complete Time: 11:07 kb 12/07 10:39 Order name: Chest Pa And Lat (2 Views) XRAY; Complete Time: 11:42 kb Administered Medications: 11:15 Drug: Xopenex 1.25 mg Route: Inhalation; ae4 12:25 Follow up: Response: Medication administered at discharge. ae4 11:15 Drug: AtroVENT Aerosol 0.5 mg Route: Inhalation; ae4 12:24 Follow up: Response: Wheezing diminished ae4 12:11 Drug: predniSONE 40 mg Route: PO; ae4 12:23 Follow up: Response: Medication administered at discharge. ae4 12:11 Drug: Zithromax 500 mg Route: PO; ae4 12:24 Follow up: Response: Medication administered at discharge. ae4 Disposition: 13:16 Co-signature as Attending Physician, Manish Bustos MD. rn Disposition: 12/07/18 11:58 Discharged to Home. Impression: Chronic obstructive pulmonary disease with (acute) exacerbation. - Condition is Stable. - Discharge Instructions: Chronic Obstructive Pulmonary Disease Exacerbation. - Prescriptions for Prednisone 20 mg Oral Tablet - take 1 tablet by ORAL route once daily for 5 days; 5 tablet. Zithromax Z- Jalen 250 mg Oral Tablet - take 1 tablet by ORAL route as directed for 5 days Day 1 - take two (2) tablets one time. Day 2, 3, 4 , 5 take one (1) tablet once daily.; 6 tablet. Albuterol Sulfate 90 mcg/actuation - inhale 1-2 puff by INHALATION route every 4-6 hours; 1 Inhaler. - Medication Reconciliation Form, Thank You Letter, Antibiotic Education, Prescription Opioid Use form. - Follow up: Emergency Department; When: As needed; Reason: Worsening of condition. Follow up: Private Physician; When: 2 - 3 days; Reason: Recheck today's complaints, Continuance of care, Re-evaluation by your physician. Signatures: Dispatcher [employer] [facility] Dora Diana, [employer]-Manish Guzman MD MD rn Smirch, Shelby, RN RN ss Elliott, Andrea, RN RN ae4 Corrections: (The following items were deleted from the chart) 12:27 11:58 12/07/2018 11:58 Discharged to Home. Impression: Chronic obstructive pulmonary ae4 disease with (acute) exacerbation. Condition is Stable. Forms are Medication Reconciliation Form, Thank You Letter, Antibiotic Education, Prescription Opioid Use. Follow up: Emergency Department; When: As needed; Reason: Worsening of condition. Follow up: Private Physician; When: 2 - 3 days; Reason: Recheck today's complaints, Continuance of care, Re-evaluation by your physician. kb
--- NOTE | 2018-12-07 12:02 | ER ---
Nurse's Notes [facility] Name: Sheri Freeman Age: 68 yrs Sex: Female : 1950 Arrival Date: 12/07/2018 Time: 10:05 Bed 19 Private MD: out of town, doctor Diagnosis: Chronic obstructive pulmonary disease with (acute) exacerbation Presentation: 12/07 10:37 Presenting complaint: Patient states: Fever, body aches and headache that began last ss night. TMAX 101.9. Aleve taken last at 0200. Transition of care: patient was not received from another setting of care. Onset of symptoms was December 06, 2018. Risk Assessment: Do you want to hurt yourself or someone else? Patient reports no desire to harm self or others. Initial Sepsis Screen: Does the patient meet any 2 criteria? HR > 90 bpm. No. Patient's initial sepsis screen is negative. Does the patient have a suspected source of infection? No. Patient's initial sepsis screen is negative. Care prior to arrival: None. 10:37 Method Of Arrival: Wheelchair ss 10:37 Acuity: SANDRA 3 ss Triage Assessment: 11:47 General: Appears in no apparent distress. uncomfortable, Behavior is calm, cooperative. ae4 Respiratory: Onset: The symptoms/episode began/occurred gradually, the patient has moderate shortness of breath. Respiratory: Reports shortness of breath cough that is. Historical: - Allergies: 10:35 BEE STINGS; ss 10:35 Effexor XR; ss 10:35 PENICILLINS; ss 10:35 Sulfa (Sulfonamide Antibiotics); ss - PMHx: 10:35 Arthritis; Back pain; Chronic pain; Depression; GERD; High Cholesterol; Migraines; ss osteoarthritis; - PSHx: 10:35 R hip replacement; partial L knee replacement; lumbar fusions; vertebroplasty; ss - Immunization history:: Adult Immunizations up to date. - Social history:: Smoking status: Patient/guardian denies using tobacco. - Ebola Screening: : Patient denies exposure to infectious person Patient denies travel to an Ebola-affected area in the 21 days before illness onset. Screenin:46 Abuse screen: Denies threats or abuse. Nutritional screening: No deficits noted. ae4 Tuberculosis screening: No symptoms or risk factors identified. Fall Risk None identified. Assessment: 11:43 Reassessment: Patient appears in no apparent distress at this time. Returned from ae4 radiology. 11:44 Pain: Complains of pain in right wrist and right hand. Neuro: Level of Consciousness is ae4 awake, alert, obeys commands, Oriented to person, place, time, situation, Appropriate for age. Cardiovascular: Heart tones S1 S2 present Rhythm is regular. Respiratory: Airway is patent Respiratory effort is even, unlabored, Breath sounds are diminished bilaterally. Respiratory: Reports shortness of breath cough that is. GI: No signs and/or symptoms were reported involving the gastrointestinal system. : No signs and/or symptoms were reported regarding the genitourinary system. EENT: wears glasses.. Derm: Skin is pale. Musculoskeletal: Reports Generalized weakness. Vital Signs: 10:35 BP 99 / 60; Pulse 92; Resp 16; Temp 98.6(TE); Pulse Ox 93% on R/A; Weight 68.04 kg; ss Height 5 ft. 2 in. (157.48 cm); Pain 2/10; 11:44 BP 98 / 52; Pulse 80; Resp 19; Pulse Ox 99% on Nebulizer Mask; ae4 12:25 BP 114 / 62; Pulse 82; Resp 19; Pulse Ox 96% on R/A; ae4 10:35 Body Mass Index 27.44 (68.04 kg, 157.48 cm) ED Course: 10:05 Patient arrived in ED. mr 10:05 out of town, doctor is Private Physician. mr 10:35 Arm band placed on right wrist. ss 10:38 Triage completed. ss 10:38 Dora Diana FNP-C [facility]. kb 10:38 Manish Bustos MD is Attending Physician. kb 10:41 Mauricio Krause, FELICIA is Primary Nurse. ae4 11:00 Inserted saline lock: 20 gauge in right antecubital area, using aseptic technique. ae4 Blood collected. 11:08 Flu Sent. ae4 11:08 Basic Metabolic Panel Sent. ae4 11:08 CBC with Diff Sent. ae4 11:22 Chest Pa And Lat (2 Views) XRAY In Process Unspecified. EDMS 11:47 Placed in gown. Bed in low position. Call light in reach. Side rails up X 1. Adult w/ ae4 patient. Pulse ox on. NIBP on. Warm blanket given. 12:25 No provider procedures requiring assistance completed. IV discontinued, intact, ae4 bleeding controlled, No redness/swelling at site. Pressure dressing applied. Administered Medications: 11:15 Drug: Xopenex 1.25 mg Route: Inhalation; ae4 12:25 Follow up: Response: Medication administered at discharge. ae4 11:15 Drug: AtroVENT Aerosol 0.5 mg Route: Inhalation; ae4 12:24 Follow up: Response: Wheezing diminished ae4 12:11 Drug: predniSONE 40 mg Route: PO; ae4 12:23 Follow up: Response: Medication administered at discharge. ae4 12:11 Drug: Zithromax 500 mg Route: PO; ae4 12:24 Follow up: Response: Medication administered at discharge. ae4 Outcome: 11:58 Discharge ordered by . kb 12:26 Discharged to home via wheelchair, with significant other. ae4 12:26 Condition: stable 12:26 Discharge instructions given to patient, Instructed on discharge instructions, follow up and referral plans. medication usage, Demonstrated understanding of instructions, Prescriptions given X 3. 12:27 Patient left the ED. ae4 Signatures: Dispatcher [employer] EDFL Dora Diana, LENS CEMENTER-C LENS CEMENTER-Liz Rivers mr Sue Beach, FELICIA RN Mauricio Krause RN RN ae4
[2018-12-07 12:19] LABS: Urine Blood NEGATIVE (NEG); Urine Glucose NEGATIVE (NEG); Urine Protein NEGATIVE (NEG); Urine Specific Gravity 1.025 (1.005-1.030); Urine pH 5.5 (5.0-7.0)
[2018-12-07] MEDS ORDERED: predniSONE 20 MG TAB ONE (12:29)
[2018-12-07] MEDS ORDERED: AZITHROMYCIN 250 MG TAB ONE (12:29)
== END 2018-12-07 12:27 | disposition home or self-care (01) ==
LOC: ER 10:03
DX: J44.1 Chronic obstructive pulmonary disease with (acute) exacerbation (principal); F32.9 Major depressive disorder, single episode, unspecified; E78.00 Pure hypercholesterolemia, unspecified; K21.9 Gastro-esophageal reflux disease without esophagitis; Z88.0 Allergy status to penicillin; Z88.2 Allergy status to sulfonamides; Z88.8 Allergy status to other drugs, medicaments and biological substances; Z91.030 Bee allergy status
CPT/HCPCS: 36415; 71046; 80048; 81003; 83605; 84145; 85025; 87804; 99284; J7512

== ENCOUNTER 2018-12-31 06:29 | Day surgery (SDC) | payer OTHER ==
[2018-12-24 12:15] LABS: Absolute Lymphocytes (CBC) 1.7 K/uL (0.7-4.9); Basophils % 0.7 % (0-1.3); Eosinophils % 1.9 % (0-4.4); Hematocrit 42.5 % (36.0-45.0); Lymphocytes % 24.5 % (15.3-44.8); Monocytes % 6.7 % (3.3-12.3); RBC Red Blood Cell Count 5.07 M/uL (3.86-4.86)
[2018-12-24 12:17] LABS: Protime INR 0.91
--- NOTE | 2018-12-24 15:02 | EKG ---
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
[~2018-12-31 06:29] MED LIST changes: -CLINDAMYCIN INJ 600 MG in NA CHLORIDE 0.9% 50 ML IV ONE; +CLINDAMYCIN INJ 600 MG in NA CHLORIDE 0.9% 50 ML IV SCH
--- OUTSIDE RECORDS SUMMARY | 2018-12-31 06:33 | XMS REPORT ---
[...] End Status Dosage System Date Date Prevacid [facility] [id number] 15 MG Orally Jan 19, Active 1 capsule Once a day 2017 Zoloft [facility] 08030806411 100 mg Oral Jan 19, Active 2 tab 2018 Imitrex [facility] 97178648959 100 MG Orally Active 1 tablet as Twice a day needed Clonazepam [facility] 88246183781 0.25 MG Orally Active 1 tablet on Once a day the tongue and allow to dissolve before bedtime Lyrica [facility] 82204555593 25 MG Orally Jan 19, Active 2 capsules Twice a day 2017 Meloxicam [facility] 33542579548 15 MG Orally Jan 19, Active 1 tablet Once a day 2018 Ambien [facility] 84235283948 10 MG Orally Jan 19, Active 1 tablet at Once a day 2018 bedtime as needed Pravastatin [facility] 46562537547 40 MG Orally Active 1 tablet Sodium Once a day clindamycin [facility] 0 Jan 19, Active not defined 2018 Oxycodone-Acetam [facility] 50878527092 7.5-325 MG Oral Active (Schedule inophen II Drug) TK 1 T PO TID Pantoprazole [facility] 32835846550 40 MG Orally Jan 19, Active 1 tablet Sodium Once a day 2018 Results No Known Results Summary Purpose eClinicalWorks Submission
--- OUTSIDE RECORDS SUMMARY | 2018-12-31 06:33 | XMS REPORT | Clinical Summary ---
:1950 Author Organization [employer] Address [address] [place] [address] Care Team Providers Name Role Phone Kathi Schultz MD Primary Care Provider Allergies Active Allergy Reactions Severity Noted Date Comments Bee Pollen Hives, Itching 10/26/2015 Venlafaxine Hives 10/26/2015 Penicillins Hives 10/26/2015 Sulfa (Sulfonamide Antibiotics) Hives 10/26/2015 Medications Medication Sig Dispensed Refills Start Date End Date Status pregabalin (LYRICA) Take 150 mg by 0 Active 150 MG capsule mouth 2 (two) times a day. meloxicam (MOBIC) 15 Take 15 mg by 0 Active MG tablet mouth daily. lansoprazole Take 30 mg by 0 Active (PREVACID) 30 MG mouth daily. capsule Takes in evening SUMAtriptan Take 100 mg by 0 Active (IMITREX) 50 MG mouth once as tablet needed for migraine. May repeat in 2 hours if unresolved. Do not exceed 200 mg in 24 hours. fluticasone 2 sprays into 0 Active (FLONASE) 50 each nostril mcg/actuation nasal daily. spray cetirizine (ZyrTEC) Take 10 mg by 0 Active 10 MG tablet mouth daily. diphenhydrAMINE Take 12.5 mg 0 Active (BENADRYL) 25 mg by mouth as capsule needed for itching. triamcinolone Apply 2 sprays 16.5 g 6 09/01/2016 Active (NASACORT AQ) 55 mcg in each nasal nostril once a inhalerIndications: day Chronic rhinitis tiZANidine Take 4 mg by 0 Active (ZANAFLEX) 4 MG mouth every 8 tablet (eight) hours as needed for muscle spasms. pantoprazole TAKE ONE 90 tablet 1 11/16/2017 Active (PROTONIX) 40 MG EC TABLET BY tablet MOUTH DAILY oxyCODone-acetaminop Take 1 tablet 0 Active hen (PERCOCET) by mouth 3 7.5-325 mg per (three) times tablet a day. sertraline (ZOLOFT) Take 2 tablets 60 tablet 5 11/01/2018 Active 100 MG tablet (200 mg total) by mouth daily. clonAZEPAM TAKE 1 TABLET 30 tablet 0 11/15/2018 Active (KlonoPIN) 0.5 MG BY MOUTH EVERY 9 tablet 6 TO 8 HOURS NEEDED FOR ANXIETY. albuterol (PROAIR Inhale 2 puffs 18 g 0 12/22/2018 Active HFA,PROVENTIL every 6 (six) HFA,VENTOLIN HFA) 90 hours as mcg/actuation needed for inhalerIndications: wheezing or Chronic obstructive shortness of pulmonary disease, breath. unspecified COPD type (HCC) cholecalciferol, TAKE 1 CAPSULE 4 capsule 0 12/28/2018 Active vitamin D3, 50,000 BY MOUTH ONCE unit A WEEK capsuleIndications: Vitamin D deficiency dextromethorphan-gua Take 1 tablet 0 Discontinued ifenesin (MUCINEX DM by mouth as 8 REGULAR) 30-600 mg needed. tablet extended release 12 hr zolpidem (AMBIEN) 10 Take 10 mg by 0 12/20/2015 Discontinued mg tablet mouth nightly 8 as needed. oxyCODone-acetaminop TK 1 TABLET BY 0 11/09/2015 Discontinued hen (PERCOCET) MOUTH TID TO 8 10-325 mg per tablet QID cholecalciferol, TAKE ONE 8 capsule 1 04/30/2017 Discontinued vitamin D3, 50,000 CAPSULE BY 8 unit MOUTH TWICE capsuleIndications: PER WEEK Vitamin D deficiency sertraline (ZOLOFT) TAKE TWO 60 tablet 3 12/29/2017 Discontinued 100 MG tablet TABLETS BY 8 MOUTH DAILY tolterodine LA Take 1 capsule 30 capsule 11 01/20/2018 Discontinued (DETROL LA) 4 MG 24 (4 mg total) 8 hr capsule by mouth daily. zolpidem (AMBIEN) 10 Take 1 tablet 30 tablet 2 01/21/2018 mg tablet (10 mg total) 8 by mouth nightly as needed for sleep for up to 30 days. cholecalciferol, Take 1 capsule 4 capsule 6 04/16/2018 Discontinued vitamin D3, 50,000 (50,000 Units 9 unit total) by capsuleIndications: mouth once a Vitamin D deficiency week. clonAZEPAM Take 1 tablet 30 tablet 0 04/16/2018 Discontinued (KlonoPIN) 0.5 MG by mouth every 8 tablet 6-8 hrs as needed for anxiety. pravastatin Take 1 tablet 30 tablet 5 04/21/2018 Discontinued (PRAVACHOL) 40 MG (40 mg total) 9 tablet by mouth daily. sertraline (ZOLOFT) Take 2 tablets 60 tablet 5 05/05/2018 Discontinued 100 MG tablet (200 mg total) 9 by mouth daily. zolpidem (AMBIEN) 10 Take 1 tablet 30 tablet 2 05/05/2018 Discontinued mg tablet (10 mg total) 9 by mouth nightly as needed for sleep for up to 90 days. azithromycin Take 2 tablets 6 tablet 0 06/18/2018 (ZITHROMAX Z-ELIZA) the first day, 9 250 MG then 1 tablet tabletIndications: daily for 4 Cough days. QUEtiapine Take 1 tablet 30 tablet 1 07/07/2018 Discontinued (SEROquel) 25 MG (25 mg total) 9 tablet by mouth nightly. zolpidem (AMBIEN) 10 Take 1 tablet 30 tablet 3 08/20/2018 mg tablet (10 mg total) 9 by mouth nightly as needed for sleep for up to 30 days. pravastatin Take 1 tablet 30 tablet 3 11/16/2018 Discontinued (PRAVACHOL) 40 MG (40 mg total) 9 tablet by mouth daily. aerosol holding Inhale 1 each 1 each 0 12/22/2018 chamber once for 1 9 spacerIndications: dose. 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 Encounters Date Type Specialty Care Team Description 12/30/2018 Telephone Family Kathi Aceves MD 12/28/2018 Refill Family Kathi Aceves Vitamin D deficiency MD Warren 12/27/2018 Telephone Internal Medicine Kathi Schultz MD 12/22/2018 Office Visit Family Kathi Aceves Preoperative clearance (Primary Dx); MD Warren Carpal tunnel syndrome of left wrist; Chronic obstructive pulmonary disease, unspecified COPD type ([facility]) 12/07/2018 Telephone Access Richard Mckeon, FELICIA 12/07/2018 Nurse Triage Access Richard Mckeon RN 11/15/2018 Refill Family Kathi Aceves MD 11/15/2018 Refill Family Kathi Aceves MD 11/01/2018 Refill Family Kathi Aceves MD 09/04/2018 Refill Family Kathi Aceves MD 08/31/2018 Refill Family Kathi Aceves MD 08/20/2018 Telephone Internal Kathi Aceves MD 08/18/2018 Telephone Internal Kathi Aceves MD 08/03/2018 Office Visit Orthopedic Surgery Dallas Pickering Right hip pain MD Vic (Primary Dx) 08/02/2018 Refill Family Kathi Aceves MD 08/02/2018 Orders Only Orthopedic Surgery Sarah Gonzales, Pain of right hip MA joint (Primary Dx) 07/05/2018 Telephone Family Kathi Aceves MD 06/18/2018 Office Visit Family Kathi Aceves Preoperative clearance (Primary Dx); MD Warren Primary osteoarthritis of right shoulder; Cough 06/03/2018 Telephone Family Kathi Aceves MD 05/21/2018 Telephone Internal Medicine Kathi Schultz [...] (Primary Dx); MD Yun Urge incontinence; Nocturia after 12/30/2017 Immunizations Name Dates Previously Given Next Due [...] Vital Sign Reading Time Taken Blood Pressure 117/61 12/22/2018 9:24 AM CDT Pulse 74 12/22/2018 9:24 AM CDT Temperature 36.6 C (97.8 F) 12/22/2018 9:24 AM CDT Respiratory Rate - - Oxygen Saturation 96% 12/22/2018 9:24 AM CDT Inhaled Oxygen Concentration - - Weight 67.1 kg (148 lb) 12/22/2018 9:24 AM CDT Height 157.5 cm (5' 2") 12/22/2018 9:24 AM CDT Body Mass Index 27.07 12/22/2018 9:24 AM CDT Plan of Treatment Health Maintenance Due Date Last Done Comments BREAST CANCER SCREENING 10/21/1999 COLONOSCOPY SCREENING 10/21/1999 SHINGLES VACCINES (#1) 10/21/1999 INFLUENZA VACCINE 01/13/2019 04/12/2018, 09/25/2016 65+ PNEUMOCOCCAL VACCINE Completed 04/12/2018, 09/25/2016 Implants Implanted Type Area E Mail 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 Device Shelf Model / Serial / Identifier Expiration Lot Date Shell Actblr Mul-Hl Sz Jj 54mm Continuum - [id number] Hip Joint Right [employer] 06/14/2025 [id number] / Implanted: Qty: 1 on 11/05/2015 Implants : Hip / [id number] Shell Actblr Mul-Hl Sz Jj 54mm Continuum - [id number] Hip Joint Right [employer] 06/14/2025 [id number] / Implanted: Qty: 1 on 11/05/2015 Implants : Hip / [id number] Putty Dbm Dbx 10cc - [id number] - [id number] Human Right MUSCULOSKELETAL 04/13/2017 [id number] / Implanted: Qty: 1 on 11/05/2015 Tissue : Hip TRANSPLANT [id number] / Implants [employer] Head Fml 05/28 Tprd Mtl 36x+8.5mm Articul/Yuri Ultamet - [id number] Orthopedic Right DEPUY ORTHO 08/07/2019 [id number] / Implanted: Qty: 1 on 11/05/2015 Trauma : Hip / Implants [id number] Cancellous Chips, 30cc Right 07/04/2018 / Implanted: Qty: 1 on 11/05/2015 : Hip [id number] / Neutral Liner Right 05/14/2020 / Implanted: Qty: 1 on 11/05/2015 : Hip / [id number] Bone Screw Right 08/12/2025 / Implanted: Qty: 1 on 11/05/2015 : Hip / [id number] Bone Screw Right 01/12/2025 / Implanted: Qty: 1 on 11/05/2015 : Hip / [id number] Procedures Procedure Name Priority Date/Time Associated Diagnosis Comments XR HIP 2-3 VIEWS Routine 08/03/2018 Pain of right hip joint Results for RIGHT 10:19 AM [facility] this procedure are in the results section. XR CHEST 2 VW Routine 06/18/2018 Preoperative clearance Results for 3:58 PM [facility] Primary osteoarthritis of this procedure right shoulder [...] Urinary urgency COMPLEX (LPP) 2:21 PM CDT [id number] Routine 01/20/2018 Nocturia Results for 10:07 AM CDT Urge incontinence this procedure are in the results section. POC URINALYSIS Routine 01/20/2018 Nocturia Results for DIPSTICK 9:59 AM CDT Urge incontinence this procedure are in the results section. after 12/30/2017 Results XR Hip 2-3 View Right (08/03/2018 10:19 AM [facility]) Specimen Narrative Performed At Right hip xray shows status post right total hip arthroplasty with [facility] components in good place. No signs of osteolysis or loosening. No fractures noted.Two screws in acetabulum. Performing Organization Address City/State/Zipcode Phone Number [facility] [address] [place] [address] XR Chest 2 Vw (06/18/2018 3:58 PM [facility])Only the most recent of2 resultswithin the time period is included. Specimen Narrative Performed At EXAMINATION:XR CHEST 2 VW [facility] CLINICAL HISTORY:Z01.818 Encounter for other preprocedural examination, M19.011 Primary osteoarthritisright shoulder, coughpre-op clearance COMPARISON:04/13/2018 IMPRESSION: Lungs are clear without infiltrate, pleural effusion or pneumothorax. Cardiomediastinal silhouette is unremarkable. Osseous degenerative changes and mild osseous demineralization. Cranial extent of posterior spinal fusion partly visualized. Kyphoplasty changes lower thoracic/upper lumbar vertebra. [facility] [id number] Procedure Note Interface, Radiology Results Incoming - 06/18/2018 4:05 PM [facility] EXAMINATION: XR CHEST 2 VW CLINICAL HISTORY: Z01.818 Encounter for other preprocedural examination, M19.011 Primary osteoarthritis right shoulder, cough pre-op clearance COMPARISON: 04/13/2018 IMPRESSION: Lungs are clear without infiltrate, pleural effusion or pneumothorax. Cardiomediastinal silhouette is unremarkable. Osseous degenerative changes and mild osseous demineralization. Cranial extent of posterior spinal fusion partly visualized. Kyphoplasty changes lower thoracic /upper lumbar vertebra. [facility]-[id number] Performing Organization Address [facility] Phone Number [facility] [address] [place] [address] XR Ribs 3 Vw Bilateral (04/13/2018 1:06 PM CDT) Specimen Narrative Performed At EXAMINATION:XR RIBS 3 VW BILATERAL [facility] CLINICAL HISTORY:R07.89 Other chest pain, R and L sided chest wall painR side due to leaning over bath tubawoke with L sided pain today (cause) COMPARISON:None. IMPRESSION: Nondisplaced right anterior sixth and eighth rib fracture suspected in the costochondral junction. Correlate for point tenderness. [facility]-[id number] Procedure Note Interface, Radiology Results Incoming - [...] the costochondral junction. Correlate for point tenderness. [facility]-[id number] Performing Organization Address [facility] Phone Number [facility] [address] [place] [address] URINALYSIS, COMPLETE, WITH REFLEX TO CULTURE (04/12/2018 9:57 AM CDT) Color, UA DARK YELLOW YELLOW [facility] [address] Appearance CLEAR CLEAR [facility] [address] Specific gravity, 1.030 1.001 - 1.035 [facility] urine [address] pH, urine 7.5 5.0 - 8.0 [facility] [address] Glucose, urine NEGATIVE NEGATIVE [facility] [address] Bilirubin, UA NEGATIVE NEGATIVE [facility] [address] Ketones, UA TRACE (A) NEGATIVE [facility] [address] Occult blood, NEGATIVE NEGATIVE [facility] urine [address] Protein, UA TRACE (A) NEGATIVE [facility] [address] Nitrite, UA NEGATIVE NEGATIVE [facility] [address] Leukocyte TRACE (A) NEGATIVE [facility] esterase, UA [address] WBC, UA NONE SEEN < OR=5 /HPF [facility] [address] RBC, UA 0-2 < OR=2 /HPF [facility] [address] Squamous 0-5 < OR=5 /HPF [facility] epithelial cells, [address] UA Bacteria, UA NONE SEEN NONE SEEN /HPF [facility] [address] Hyaline casts, UA NONE SEEN NONE SEEN /LPF [facility] [address] Reflex CULTURE [facility] RESULTS TO FOLLOW Specimen Blood Resulting Agency Comment Performing Organization Information: Site ID: RGA Name: [facility] Address: [address] [place] [phone] Director: Pina Peralta Performing Organization Address [facility] Phone Number [facility] [address] [address] Vitamin D 25 hydroxy level (04/12/2018 9:57 AM CDT) Pathologist [facility] Vitamin D, 28 (L) 30 - 100 [employer] 25-hydroxy Comment: ng/mL [address] Vitamin D Status 25-OH Vitamin D: Deficiency:<20 ng/mL Insufficiency: 20 - 29 ng/mL Optimal: > or=30 ng/mL For 25-OH Vitamin D testing on patients on D2-supplementation and patients for whom quantitation of D2 and D3 fractions is required, the QuestAssureD(TM) 25-OH VIT D, (D2,D3), LC/MS/MS is recommended: order code 56475 (patients >2yrs). For more information on this test, go to: http://education.Cognia/faq/CZK933 (This link is being provided for informational/educational purposes only.) Specimen Blood Resulting Agency Comment Performing Organization Information: Site ID: RGA Name: [facility] Address: [address] [place] [phone] Director: Pina Peralta Performing Organization Address [facility] Phone Number [facility] [address] [address] CBC with platelet and differential (04/12/2018 9:57 AM CDT) Pathologist [facility] WBC 6.6 3.8 - 10.8 [facility] Thousand/uL [address] RBC 5.05 3.80 - 5.10 [facility] Million/uL [address] HGB 14.3 11.7 - 15.5 [facility] g/dL [address] HCT 43.8 35.0 - 45.0 % [facility] [address] MCV 86.7 80.0 - 100.0 fL [facility] [address] MCH 28.3 27.0 - 33.0 pg [facility] [address] MCHC 32.6 32.0 - 36.0 [facility] g/dL [address] RDW 14.5 11.0 - 15.0 % [facility] DIAGNOSTICS [address] Platelet count 232 140 - 400 [facility] Thousand/uL [address] MPV 10.9 7.5 - 12.5 fL [employer] [address] Neutrophils, absolute 3,947 1,500 - 7,800 [facility] cells/uL [address] Lymphocytes, absolute 1,980 850 - 3,900 [facility] cells/uL [address] Monocytes, absolute 475 200 - 950 [facility] cells/uL [address] Eosinophils, absolute 139 15 - 500 [facility] cells/uL [address] Basophils, absolute 59 0 - 200 [facility] cells/uL [address] Neutrophils 59.8 % [facility] DIAGNOSTICS [address] Lymphocytes 30.0 % [facility] [address] Monocytes 7.2 % [facility] [address] Eosinophils 2.1 % [facility] DIAGNOSTICS [address] Basophils + RC 0.9 % [facility] DIAGNOSTICS [address] Specimen Blood Resulting Agency Comment Performing Organization Information: Site ID: RGA Name: [facility] Address: [address] [place] [phone] Director: Pina Peralta Performing Organization Address City/State/Zipcode Phone Number BIBI [facility] [place] [phone] Urine culture (04/12/2018 9:57 AM CDT) [facility] Urine culture SEE NOTE (A) [facility] Comment: [address] CULTURE, URINE, ROUTINE MICRO NUMBER:[id number] TEST STATUS: FINAL SPECIMEN SOURCE: URINE SPECIMEN [...] Agency Comment Performing Organization Information: Site ID: [facility] Name: [facility] Address: [address] [place] [address] Director: Pina Peralta Performing Organization Address [facility] [place] [address] Thyroid stimulating hormone (04/12/2018 9:57 AM CDT) Pathologist [facility] TSH 0.83 0.40 - 4.50 mIU/L [facility] [employer] [address] Specimen Blood Resulting Agency Comment Performing Organization Information: Site ID: [facility] Name: [facility] Address: [address] [place] [phone] Director: Pina Peralta Performing Organization Address [facility] Phone Number [facility] [address] [address] Lipid panel (04/12/2018 9:57 AM CDT) Pathologist [facility] Cholesterol, total 301 (H) <200 mg/dL [facility] HDL cholesterol 46 (L) >50 mg/dL [facility] Triglycerides 372 (H) <150 mg/dL [facility] LDL cholesterol 192 (H) mg/dL [facility] Comment: (calc) DIAGNOSTICS LDL-C levels > ss=546 mg/dL may indicate familial AMAYA hypercholesterolemia (FH). Clinical assessment and measurement of blood lipid levels should be considered for all first degree relatives of patients with an FH diagnosis. For questions about testing for familial hypercholesterolemia, please call [employer] Client Services at [phone]. Arline Scott et al. J National Lipid Association Recommendations for Patient-Centered Management of Dyslipidemia: Part 1 Journal of Clinical Lipidology 2015;9(2), 129-169. Reference range: <100 Desirable range <100 mg/dL for primary prevention; <70 mg/dL for patients with CHD or diabetic patients with > or=2 CHD risk factors. LDL-C is now calculated using the Lonny-Lori calculation, which is a validated novel method providing better accuracy than the Friedewald equation in the estimation of LDL-C. Lonny HARRIS et al. CHASTITY. 2013;310(19): 4016-1721 (http://education.BadAbroad/faq/LXJ905) Cholesterol/HDL 6.5 (H) <5.0 [facility] (calc[facility] [address] Non-HDL 255 (H) <130 mg/dL [facility] cholesterol Comment: (calc) DIAGNOSTICS Non-HDL level > ni=386 is very high and may indicate [address] genetic familial hypercholesterolemia (FH). Clinical assessment and [...] Performing Organization Information: Site ID: [facility] Name: [facility] Address: [address] [place] [phone] Director: Pina Peralta Performing Organization Address City/State/Zipcode Phone Number [facility] [place] [phone] Comprehensive metabolic panel (04/12/2018 9:57 AM CDT) [facility] Glucose 97 65 - 99 [employer] Comment: mg/dL [address] Fasting reference interval BUN, whole blood 18 7 - 25 mg/dL [employer] [address] Creatinine 0.97 0.50 - 0.99 [employer] Comment: mg/dL [address] For patients >49 years of age, the reference limit for Creatinine is approximately 13% higher for people identified as -Micronesian. EGFR Non-Afr. 60 > OR=60 [facility] Micronesian mL/min/1.73m [address] 2 EGFR 70 > OR=60 [facility] Micronesian mL/min/1.73m [address] 2 BUN/creatinine NOT APPLICABLE 6 - 22 [facility] ratio (calc) [address] Sodium 141 135 - 146 [facility] mmol/L [address] Potassium 4.8 3.5 - 5.3 [facility] mmol/L [address] Chloride 102 98 - 110 [facility] mmol/L [address] CO2 31 20 - 32 [facility] mmol/L [address] Calcium 9.8 8.6 - 10.4 [facility] mg/dL [address] Protein 7.2 6.1 - 8.1 [facility] g/dL [address] Albumin, S 4.5 3.6 - 5.1 [facility] g/dL [address] Globulin, total 2.7 1.9 - 3.7 [facility] g/dL (calc) [address] Albumin/globulin 1.7 1.0 - 2.5 [facility] ratio (calc) [address] Total bilirubin 0.4 0.2 - 1.2 [facility] mg/dL [address] Alkaline 90 33 - 130 U/L [facility] phosphatase [address] AST 13 10 - 35 U/L [facility] [address] ALT 11 6 - 29 U/L [facility] [address] Specimen Blood Resulting Agency Comment Performing Organization Information: Site ID: [facility] Name: [facility] Address: [address] [place] [phone] Director: Pina Peralta Performing Organization Address [facility] Phone Number [facility] [address] [address] Occult blood, stool (04/12/2018 9:36 AM CDT) Fecal globin SEE NOTE [facility] result Comment: [address] FECAL GLOBIN BY IMMUNOCHEMISTRY MICRO NUMBER:[id number] TEST STATUS: FINAL SPECIMEN SOURCE: INSURE (TM) FOBT TEST CARD SPECIMEN QUALITY:ADEQUATE RESULT:Not Detected Specimen Stool Resulting Agency Comment Performing Organization Information: Site ID: [facility] Name: [facility] Address: [address] [place] [phone] Director: Pina Peralta Performing Organization Address [facility] Phone Number [facility] [address] [address] POC urinalysis dipstick (03/01/2018 3:00 PM CDT)Only the most recent of2 resultswithin the time period is included. Color [...] CDT) Volume 50 mlComment: pvr Specimen Urine after 12/30/2017 Insurance Payer Benefit Plan / Subscriber ID Effective Phone Address Type Group Dates MEDICARE MEDICARE PART xxxxxxxxxxx 2014-[place], [place] Medicare A AND B nt MUTUAL OF M[employer]UAL OF xxxxxxxx 2014-[place] [employer] ZUNI ZUNI nt Guarantor Name Account Type Relation to Date of Phone Billing Address Patient Sheri Freeman Personal/Family Self [address] [place] [id number] Advance Directives Patient has advance care planning documents on file. For more information, please contact:Derick Adan[address] [place] [address]
--- OUTSIDE RECORDS SUMMARY | 2018-12-31 06:33 | XMS REPORT ---
[...] End Status Dosage System Date Date clindamycin [facility] 0 Jan 19, Active not defined 2017 Ambien [facility] [id number] 10 MG Orally Jan 19, Active 1 tablet at Once a day 2018 bedtime as needed Meloxicam [facility] [id number] 15 MG Orally Jan 19, Active 1 tablet Once a day 2017 Pantoprazole [facility] [id number] 40 MG Orally Jan 19, Active 1 tablet Sodium Once a day 2017 Oxycodone-Acetam [facility] [id number] 7.5-325 MG Oral Active (Schedule inophen II Drug) TK 1 T PO TID Zoloft [facility] [id number] 100 mg Oral Jan 19, Active 2 tab 2018 Prevacid [facility] [id number] 15 MG Orally Jan 19, Active 1 capsule Once a day 2017 Lyrica [facility] [id number] 25 MG Orally Jan 19, Active 2 capsules Twice a day 2018 Results No Known Results Summary Purpose eClinicalWorks Submission
--- OUTSIDE RECORDS SUMMARY | 2018-12-31 06:33 | XMS REPORT ---
[...] Pantoprazole [facility] 69277265413 40 MG Orally Jan 19, Active 1 tablet Sodium Once a day 2017 Meloxicam [facility] 35110123679 15 MG Orally Jan 19, Active 1 tablet Once a day 2017 clindamycin [facility] 0 Jan 19, Active not defined 2017 Ambien [facility] 74415758666 10 MG Orally Jan 19, Active 1 tablet at Once a day 2018 bedtime as needed Lyrica ND 78124429043 25 MG Orally Jan 19, Active 2 capsules Twice a day 2017 Zoloft [facility] 03930159085 100 mg Oral Jan 19, Active 2 tab 2018 Imitrex [facility] 66651427998 100 MG Orally Active 1 tablet as Twice a day needed Clonazepam [facility] 16773034699 0.25 MG Orally Active 1 tablet on Once a day the tongue and allow to dissolve before bedtime Pravastatin [facility] 98130959248 40 MG Orally Active 1 tablet Sodium Once a day Oxycodone-Acetam [facility] 53729794809 7.5-325 MG Oral Active (Schedule inophen II Drug) TK 1 T PO TID Prevacid [facility] 26120781044 15 MG Orally Jan 19, Active 1 capsule Once a day 2018 Results No Known Results Summary Purpose eClinicalWorks Submission
--- OUTSIDE RECORDS SUMMARY | 2018-12-31 06:33 | XMS REPORT ---
[...] End Status Dosage System Date Date Clonazepam [facility] 21855520841 0.25 MG Orally Active 1 tablet on Once a day the tongue and allow to dissolve before bedtime Oxycodone-Acetam [facility] 07109168223 7.5-325 MG Oral Active (Schedule inophen II Drug) TK 1 T PO TID Prevacid [facility] 29469748729 15 MG Orally Jan 19, Active 1 capsule Once a day 2017 Zoloft [facility] 95914687699 100 mg Oral Jan 19, Active 2 tab 2018 Pantoprazole [facility] 37426353025 40 MG Orally Jan 19, Active 1 tablet Sodium Once a day 2017 Lyrica [facility] 22157925363 25 MG Orally Jan 19, Active 2 capsules Twice a day 2017 Ambien [facility] 57705104861 10 MG Orally Jan 19, Active 1 tablet at Once a day 2018 bedtime as needed Pravastatin [facility] 37002082826 40 MG Orally Active 1 tablet Sodium Once a day Meloxicam [facility] 14306649395 15 MG Orally Jan 19, Active 1 tablet Once a day 2017 Imitrex [facility] 99612009611 100 MG Orally Active 1 tablet as Twice a day needed clindamycin [facility] 0 Jan 19, Active not defined 2018 Results No Known Results Summary Purpose eClinicalWorks Submission
--- OUTSIDE RECORDS SUMMARY | 2018-12-31 06:33 | XMS REPORT | Continuity of Care Document ---
:1950 Author Organization [facility] Care Team Providers Name Role Phone [facility] Unavailable Unavailable Problems No Data Provided for This Section Medications No Data Provided for This Section Allergies, Adverse Reactions, Alerts No Known Medication Allergies Immunizations No Data Provided for This Section Results No Data Provided for This Section Pathology Reports No Data Provided for This Section Diagnostic Reports No Data Provided for This Section Consultation Notes No Data Provided for This Section Discharge Summaries No Data Provided for This Section History and Physicals No Data Provided for This Section Vital Signs No Data Provided for This Section Encounters Location Location Encounter Encounter Reason Attending ADM DC Status Source Details Type Number For Provider Date Date Visit Outpatient [id number] [place] 11[place]12 [facility] Outpatient [id number] [place] [facility] [place] Procedures No Data Provided for This Section Assessment and Plan No Data Provided for This Section Plan of Care No Data Provided for This Section Social History Social History Date Source No data available for this 11/13/2018 [facility] [place] Family History No Data Provided for This Section Advance Directives No Data Provided for This Section Functional Status No Data Provided for This Section
--- OUTSIDE RECORDS SUMMARY | 2018-12-31 06:34 | XMS REPORT ---
[...] End Status Dosage System Date Date Pantoprazole [facility] 06889302927 40 MG Orally Jan 19, Active 1 tablet Sodium Once a day 2017 Meloxicam [facility] 30243166547 15 MG Orally Jan 19, Active 1 tablet Once a day 2017 Ambien [facility] 60102131248 10 MG Orally Jan 19, Active 1 tablet at Once a day 2018 bedtime as needed Clonazepam [facility] 80250627386 0.25 MG Orally Active 1 tablet on Once a day the tongue and allow to dissolve before bedtime Lyrica [facility] 21217311566 25 MG Orally Jan 19, Active 2 capsules Twice a day 2017 Prevacid [facility] 38622797940 15 MG Orally Jan 19, Active 1 capsule Once a day 2017 Pravastatin [facility] 99005443816 40 MG Orally Active 1 tablet Sodium Once a day clindamycin [facility] 0 Jan 19, Active not defined 2017 Imitrex [facility] 66402359816 100 MG Orally Active 1 tablet as Twice a day needed Oxycodone-Acetam [facility] 69095239574 7.5-325 MG Oral Active (Schedule inophen II Drug) TK 1 T PO TID Zoloft ND 31038136147 100 mg Oral Jan 19, Active 2 tab 2018 Results No Known Results Summary Purpose eClinicalWorks Submission
--- OUTSIDE RECORDS SUMMARY | 2018-12-31 06:34 | XMS REPORT ---
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
--- OUTSIDE RECORDS SUMMARY | 2018-12-31 06:34 | XMS REPORT ---
[...] replacement of Z96.611 Active right shoulder Assessment Trigger index finger of right hand M65.321 Active Assessment Trigger middle finger of right hand M65.331 Active Problem Primary osteoarthritis of right M19.011 Active shoulder Problem Carpal tunnel syndrome of left G56.02 Active wrist Assessment Pain in joint of right shoulder M25.511 Active Assessment Carpal tunnel syndrome of left G56.02 Active wrist Assessment Pain, joint, hand, right M25.541 Active Assessment Pain, joint, hand, left M25.542 Active Medications Medication Code Code Instructions Start End Status Dosage System Date Date Prevacid [facility] 68369359705 15 MG Orally Jan 19, Active 1 capsule Once a day 2017 Zoloft [facility] 14084467383 100 mg Oral Jan 19, Active 2 tab 2018 Clonazepam [facility] 09829441891 0.25 MG Orally Active 1 tablet on Once a day the tongue and allow to dissolve before bedtime Imitrex [facility] 30736890625 100 MG Orally Active 1 tablet as Twice a day needed Meloxicam [facility] 85802303890 15 MG Orally Jan 19, Active 1 tablet Once a day 2017 Pantoprazole [facility] 07447736282 40 MG Orally Jan 19, Active 1 tablet Sodium Once a day 2017 Ambien [facility] 11226816371 10 MG Orally Jan 19, Active 1 tablet at Once a day 2018 bedtime as needed Pravastatin [facility] 51698236740 40 MG Orally Active 1 tablet Sodium Once a day clindamycin [facility] 0 Jan 19, Active not defined 2018 Oxycodone-Acetam [facility] 77462928509 7.5-325 MG Oral Active (Schedule inophen II Drug) TK 1 T PO TID Lyrica [facility] 05525455242 25 MG Orally Jan 19, Active 2 capsules Twice a day 2017 Results No Known Results Summary Purpose eClinicalWorks Submission
--- OUTSIDE RECORDS SUMMARY | 2018-12-31 06:34 | XMS REPORT ---
[...] End Status Dosage System Date Date Lyrica [facility] 88615608417 25 MG Orally Jan 19, Active 2 capsules Twice a day 2017 Zoloft [facility] 73316102879 100 mg Oral Jan 19, Active 2 tab 2018 Clonazepam [facility] 36464631923 0.25 MG Orally Active 1 tablet on Once a day the tongue and allow to dissolve before bedtime Ambien [facility] 92140835298 10 MG Orally Jan 19, Active 1 tablet at Once a day 2018 bedtime as needed Prevacid [facility] 90633186476 15 MG Orally Jan 19, Active 1 capsule Once a day 2018 Pantoprazole [facility] 57410496309 40 MG Orally Jan 19, Active 1 tablet Sodium Once a day 2017 Imitrex [facility] 96391878748 100 MG Orally Active 1 tablet as Twice a day needed clindamycin [facility] 0 Jan 19, Active not defined 2018 Pravastatin [facility] 76767614735 40 MG Orally Active 1 tablet Sodium Once a day Oxycodone-Acetam [facility] 76256492590 7.5-325 MG Oral Active (Schedule inophen II Drug) TK 1 T PO TID Meloxicam [facility] 13081314340 15 MG Orally Jan 19, Active 1 tablet Once a day 2018 Results No Known Results Summary Purpose eClinicalWorks Submission
[2018-12-31] MEDS ORDERED: NA CHLORIDE 0.9% 0 ML ONE (06:48)
[2018-12-31] MEDS ORDERED: OXYMETAZOLINE HCL 0.05% 15ML NAS ONE (06:48)
[2018-12-31] MEDS ORDERED: Ringers Lactate 1,000 ML IV ONE (06:54)
[2018-12-31] MEDS ORDERED: BUPIVACAINE 0.25% PF 10 ML VIAL ONE (07:28)
[2018-12-31] MEDS ORDERED: PROPOFOL 200 MG/20 ML VIAL IV ONE (07:29)
[2018-12-31] MEDS ORDERED: MIDAZOLAM HCL 2 MG/2 ML INJ ONE ×2 (07:29→09:17)
[2018-12-31] MEDS ORDERED: LIDOCAINE 1% MPF 5 ML VIAL ONE (07:29)
[2018-12-31] MEDS ORDERED: FENTANYL CITR 100 MCG/2 ML ONE ×2 (07:29→09:30)
[2018-12-31] MEDS ORDERED: NS 0.9% VIAL 10 ML ONE (07:54)
[2018-12-31] MEDS ORDERED: EPHEDRINE SULF 50 MG/ML VIAL ONE (07:54)
[2018-12-31] MEDS ORDERED: KETOROLAC 30 MG/ML INJ ONE ×2 (08:07→09:46)
[2018-12-31] MEDS ORDERED: ONDANSETRON 4 MG/2 ML VIAL ONE ×2 (08:09→09:54)
--- NOTE | 2018-12-31 08:19 | P.BOP ---
Preoperative diagnosis: left carpal tunnel syndrome Postoperative diagnosis: same Primary procedure: left carpal tunnel release Fermentologist: NONE,NONE Estimated blood loss: 5 cc Specimen: none Findings: see dictation Anesthesia: General Complications: None Implants: none Fluids & blood products: per anesthesia; TT: 24 mins @ 250 mmHg Transferred to: Recovery Room Condition: Good
[2018-12-31] MEDS ORDERED: GLYCOPYRROLATE 0.2 MG/ML SYR ONE (09:46)
[2018-12-31] MEDS ORDERED: NEOSTIGMINE 1 MG/ML -10 ML VIAL ONE (09:54)
[2018-12-31] MEDS ORDERED: MEPERIDINE HCL 25 MG/0.5 ML ONE (10:19)
[2018-12-31] MEDS ORDERED: Mastisol Adhesive Liq ONE (10:21)
--- NOTE | 2018-12-31 11:15 | OP ---
Date of Procedure: 12/31/2018 Surgeon: Alexey Sheldon MD Preoperative Diagnosis: Left carpal tunnel syndrome. Postoperative Diagnosis: Left carpal tunnel syndrome. Procedure Performed: Left carpal tunnel release. Anesthesia: General LMA. Fluids: Per Anesthesia record. Estimated Blood Loss: Less than 5 cc. Tourniquet Time: 24 minute at 250 mmHg. Complications: None. Implants: None. Indication For Procedure: Sheri is a 68-year-old female who presented to my clinic, signs and sympto ms and EMG findings consistent with left carpal tunnel syndrome. Patient failed conservative treatme nt measures including carpal tunnel brace. Discussed with the patient at length risks and benefits as sociated with operative and nonoperative treatment. She expressed understanding and elected to proce ed with operative treatment Description Of Procedure: After informed consent was obtained, the patient was identified in the pre operative holding area. The left upper extremity was marked. The patient was then brought back to [facility] operating room, transferred to the operating table in supine fashion, placed under general LMA ane sthesia. The left upper extremity was then prepped and draped in usual sterile fashion. A time out was initiated. Correct patient and procedure were confirmed and identified. The patient had receive d her preoperative prophylactic antibiotics. The left upper extremity was then exsanguinated using a n Esmarch and tourniquet inflated to 250 mmHg. Approximately, a 3 cm longitudinal incision was made just ulnar to the thenar crease. Dissection was then taken down to palmar fascia. The pa lmar fascia was identified. A [place] elevator was placed deep to the palmar fascia and superficial to the median nerve to protect the median nerve. A 15 blade was then used to release the transverse ca rpal ligament from distal to proximal fashion. The [place] elevator below the notch at all times to pr otect the median nerve after this completed. Metzenbaum were then used to . The wound was then irrigated thoroughly with normal saline. The skin was approximated using a 5-0 Prolene. Steri le dressings were applied. Tourniquet was let down. Patient was awakened and transferred back in [facility] clinic condition. Postoperative Plan: The patient will be weightbearing while the incision heals, but will work on ran ge of motion exercises. She will return to my clinic in a week for wound check and suture removal. NICKO/ISMAEL Voice ID: [id number] Report ID: [id number]
== END 2018-12-31 09:55 | disposition home or self-care (01) ==
LOC: OR 06:29
PROVIDERS: ATTEND Orthopaedic Surgery Sports Medicine
PROC: 01N50ZZ Release Median Nerve, Open Approach (ICD-10-PCS; principal; 2018-12-31 07:30)
DX: G56.02 Carpal tunnel syndrome, left upper limb (principal); K21.9 Gastro-esophageal reflux disease without esophagitis; Z79.899 Other long term (current) drug therapy
CPT/HCPCS: 64721; 93005; 85025; 80048; 36415; 85610; 85730; J2704; J2710; J2250 ×2; J3010 ×2; J2175; J2405 ×2; J7030